=== PATIENT | male | born 1945 ===

== ENCOUNTER 2020-02-20 13:52 | Inpatient (IN) | payer MEDICARE ==
[2020-02-20] MEDS ORDERED: MORPHINE SULFATE 4 MG/ML SYRINGE IVP PRN (18:23)
[2020-02-20] MEDS ORDERED: DIPH,PERTUS(ACELL)TETVAC-LF 0.5 ML VIAL IM ONE (18:23)
[2020-02-20] MEDS ORDERED: hydrALAZINE HCL 20 MG/ML 1 ML VIAL IVP PRN (18:25)
[2020-02-20] MEDS ORDERED: ALPRAZolam 0.25 MG TAB PO PRN (18:27)
[2020-02-20] MEDS: DEXTROSE 5% IN WATER 1,000 ML IV SCH (18:41)
[2020-02-20] MEDS: NEOMYCIN-BACITRACIN-POLY OINT 14 GM TUBE TOPICAL SCH (18:55)
[2020-02-20] MEDS: PRAVASTATIN SODIUM 20 MG TAB PO SCH (20:14)
[2020-02-20] MEDS: PANTOPRAZOLE 40 MG TABLET PO SCH (20:14)
[2020-02-20] MEDS: METOPROLOL SUCCINATE (ER) 25 MG TAB.ER.24H PO SCH (20:14)
[2020-02-20] MEDS: HYDROcodone/APAP 5-325MG 1 EACH TAB PO PRN (20:14)
[2020-02-21] MEDS: HYDROcodone/APAP 5-325MG 1 EACH TAB PO PRN ×2 (02:18→20:05)
[2020-02-21] MEDS: DEXTROSE 5% IN WATER 1,000 ML IV SCH ×2 (02:21→12:37)
[2020-02-21 06:34] LABS: Basophils % (A) 1 %; Eosinophils # (A) 0.1 k/uL (0-0.7); Eosinophils % (A) 2 %; HCT 47.1 % (39.0-53.0); HGB 15.4 gm/dL (13.0-17.5); Lymphocytes # (A) 1.5 k/uL (1.0-4.8); Lymphocytes % (A) 23 %; MCH 33.1 pg (25.0-35.0); MCHC 32.7 g/dL (31.0-37.0); MCV 101.3 fL (80.0-100.0); Monocytes # (A) 0.5 k/uL (0-1.0); Monocytes % (A) 7 %; Neutrophils # (A) 4.3 k/uL (1.3-7.7); Neutrophils % (A) 65 %; Platelet Count 261 k/uL (150-450); RBC 4.65 m/uL (4.30-5.90); RDW 12.7 % (11.5-15.5); WBC 6.6 k/uL (3.8-10.6)
[2020-02-21 06:44] LABS: ALT 104 U/L (4-49); AST 218 U/L (17-59); African American GFR (CKD) >90 (>60 ml/min/1.73 sqM); Albumin 3.6 g/dL (3.5-5.0); Alkaline Phosphatase 65 U/L (38-126); Anion Gap 5 mmol/L; Blood Urea Nitrogen 14 mg/dL (9-20); Calcium 8.7 mg/dL (8.4-10.2); Carbon Dioxide 28 mmol/L (22-30); Chloride 105 mmol/L (98-107); Glucose 111 mg/dL (74-99); Non-African American GFR(CKD) 87 (>60 ml/min/1.73 sqM); Potassium 3.8 mmol/L (3.5-5.1); Sodium 138 mmol/L (137-145); Total Bilirubin 0.8 mg/dL (0.2-1.3); Total Protein 6.4 g/dL (6.3-8.2)
[2020-02-21] MEDS: lisinopriL 20 MG TAB PO SCH (09:19)
[2020-02-21] MEDS: amLODIPine 10 MG TAB PO SCH (09:19)
[2020-02-21] MEDS: ASPIRIN 81 MG PO SCH ×2 (09:19→11:30)
[2020-02-21] MEDS: CHOLECALCIFEROL 1,000 UNIT TAB PO SCH (09:19)
--- NOTE | 2020-02-21 10:08 | P.CNOR ---
<Adia Hernandez - Last Filed: 02/21/20 14:03> History of Present Illness - [facility] Consult date: 02/21/20 Consult reason: joint pain (Right shoulder pain) History of present illness: The patient is a 74-year-old male who presented to the hospital yesterday as a transfer from [place]. He states he fell a week ago Friday in his barn and was unable to get up off the floor for many hours. He states that his right shoulder was very painful after the fall and he was unable to pull himself up. The patient states that he does use a cane at home but was not using it at the time of his fall. He is status post right reverse total shoulder by Dr. Lafleur at least 5 years ago. Overall the shoulder has felt okay until this fall. He denies any pain at this time but states the pain is very severe at night when he is trying to sleep. He also states that his bilateral legs feel weak since this episode. The patient is being treated for rhabdomyolysis and unstable angina. Cardiology has seen the patient and he is already had a stress test. Orthopedics was consulted for further evaluation of his right shoulder pain. Review of Systems Constitutional: Reports malaise, Denies chills, Denies fever Cardiovascular: Denies chest pain, Denies shortness of breath Respiratory: Denies cough Gastrointestinal: Denies abdominal pain, Denies diarrhea, Denies nausea, Denies vomiting Musculoskeletal: right: shoulder pain Past Medical History Past Medical History: GERD/Reflux, Hyperlipidemia, Hypertension, Myocardial Infarction ([place]), Osteoarthritis (OA) Last Myocardial Infarction Date:: unk History of Any Multi-Drug Resistant Organisms: None Reported Past Surgical History: Orthopedic Surgery Additional Past Surgical History / Comment(s): back surgery x 8, left shoulder total, right shoulder reverse replacement, hernia surgery x2 Past Anesthesia/Blood Transfusion Reactions: No Reported Reaction Past Psychological History: Anxiety Smoking Status: Never smoker Past Alcohol Use History: Daily Additional Past Alcohol Use History / Comment(s): drinks 3 beers daily after 5pm - Past Family History Mother Family Medical History: Cancer Additional Family Medical History / Comment(s): breast Father Family Medical History: CVA/TIA Additional Family Medical History / Comment(s): stroke 80 Sister(s) Family Medical History: Cancer Additional Family Medical History / Comment(s): breast Daughter(s) Family Medical History: Cancer Additional Family Medical History / Comment(s): ovarian Medications and Allergies Home Medications Medication Instructions Recorded Confirmed Type ALPRAZolam [Xanax] 0.25 mg PO HS PRN 02/20/20 02/20/20 History Acetaminophen Tab [Tylenol] 650 mg PO Q2H PRN 02/20/20 02/20/20 History Aspirin EC [Ecotrin Low Dose] 81 mg PO DAILY 02/20/20 02/20/20 History Benazepril [Lotensin] 20 mg PO DAILY 02/20/20 02/20/20 History Calcium Carbonate [Calcium] 600 mg PO BID 02/20/20 02/20/20 History Cholecalciferol [Vitamin D3 (25 2,000 unit PO DAILY 02/20/20 02/20/20 History Mcg = 1000 Iu)] Ibuprofen [Advil] 200 mg PO Q6H PRN 02/20/20 02/20/20 History Metoprolol Succinate (ER) [Toprol 25 mg PO HS 02/20/20 02/20/20 History XL] Multivit-Min/FA/Lycopen/Lutein 1 tab PO DAILY 02/20/20 02/20/20 History [Centrum Silver Tablet] Omeprazole 20 mg PO HS 02/20/20 02/20/20 History Pravastatin Sodium [Pravachol] 20 mg PO HS 02/20/20 02/20/20 History Triple Elba(860mg Elba-3/552mg 1 cap PO HS 02/20/20 02/20/20 History Elba-6/340mg Elba-9) Urinozinc Prostate 1 tab PO BID 02/20/20 02/20/20 History amLODIPine [Norvasc] 10 mg PO DAILY 02/20/20 02/20/20 History Cephalexin [Keflex] 500 mg PO TID 7 Days #21 cap 02/23/20 Rx Wpgmeyfk-Vpejrdxxue-Tqnx Oint 1 applic TOPICAL DAILY applic 02/23/20 Rx [Triple Antibiotic Ointment] Allergies Allergy/AdvReac Type Severity Reaction Status Date / Time Iodinated Contrast Media AdvReac Nausea & Verified 02/20/20 17:04 Vomiting shellfish derived [Shellfish] AdvReac Vomiting Verified 02/20/20 17:04 Physical Examination The patient is a 74 y/o male who is no acute distress. He is alert and oriented x3. Exam of the right shoulder reveals a well healed incision the anterior aspect of the shoulder. No is no pain over the subacromial region to palpation. Range of motion reveals abduction is to 90. Extension is 10. Flexion is to 85. There is no pain on active or passive ROM of the shoulder. There is no anterior instability of the shoulder. Negative shoulder apprehension. Full, painless range of motion of the elbow, forearm, wrist and hand. Circulatory status is intact. Neurovascular status is intact. Neurosensory is intact. Results - Labs Labs: Abnormal Lab Results - Last 24 Hours (Table) 02/21/20 02/21/20 Range/Units 05:47 05:47 MCV 101.3 H (80.0-100.0) fL Glucose 111 H (74-99) mg/dL AST 218 H (17-59) U/L ALT 104 H (4-49) U/L H & H 02/21/20 Range/Units 05:47 Hgb 15.4 (13.0-17.5) gm/dL Hct 47.1 (39.0-53.0) % Result Diagrams: 02/21/20 05:47 02/21/20 05:47 - Diagnostic results Shoulder x-ray: image reviewed (X-rays of the right shoulder reveals no evidence of fracture, bone lesions, or deformity. The components are in good position without signs of migration. ) Assessment and Plan (1) Right shoulder pain Current Visit: Yes Status: Acute Code(s): M25.511 - PAIN IN RIGHT SHOULDER SNOMED Code(s): 87069106 (2) S/p reverse total shoulder arthroplasty Current Visit: Yes Status: Acute Code(s): Z96.619 - PRESENCE OF UNSPECIFIED ARTIFICIAL SHOULDER JOINT SNOMED Code(s): 406622760 Plan: The clinical findings were discussed with the patient. The case was discussed at length with Dr. Grossman. X-rays of the right shoulder were negative for periprosthetic fracture or dislocation. The patient states his pain is under c ontrol at this time. He most likely tore part of his rotator cuff that was remaining after the reverse total shoulder. No surgical intervention is planned at this time. The patient will follow up with Dr. Lafleur upon discharge from the hospital for further care for his right shoulder. The patient is orthopedically stable for discharge home when cleared by internal medicine and cardiology. We will sign off at this time. <Wenceslao Grossman - Last Filed: 02/23/20 15:10> Results - Labs Labs: Abnormal Lab Results - Last 24 Hours (Table) 02/23/20 Range/Units 06:10 Chloride 112 H (98-107) mmol/L Glucose 101 H (74-99) mg/dL Creatine Kinase 573 H (55-170) U/L H & H 02/21/20 Range/Units 05:47 Hgb 15.4 (13.0-17.5) gm/dL Hct 47.1 (39.0-53.0) % Result Diagrams: 02/21/20 05:47 02/23/20 06:10 Assessment and Plan Plan: Discussed with TABITHA Hernandez and agree with above. The patient was subsequently seen and examined by me as well. S: He admits to two injuries: The first was when he was trying to forcefully turn the crank on a hitch which required the use of both arms. He felt a sharp pain but the symptoms gradually improved. The second was about a week ago when he fell in the barn. He laid on the ground for some time as he was unable to rise. He states that the pain in the shoulder has improved quite a bit. O: Right shoulder: No ecchymosis. No focal tenderness to palpation. He is able to perform active elevation and abduction and denies pain with these maneuvers. Weakness with resisted internal and external rotation but minimal pain. No pain with passive internal and external rotation. The shoulder articulates smoothly without crepitus or instabilty. Imaging: X-rays of the right shoulder demonstrate a press-fit reverse TSA. Appears well- fixed and in good overall position. No obvious or displaced fractures. There i s subtle linear increased radiodensity across the proximal metadiaphysis which could indicate a nondisplaced healing fracture. There is a subtle vertical lucency on the lateral aspect of the metaphysis, near the neck of the stem, which could represent a nondisplaced acute fracture. A: 1. Right shoulder pain status post fall 2. Status post right reverse total shoulder arthroplasty P: I reviewed the clinical and radiographic findings in detail with the patient. The description of the injuries and his exam are consistent with a contusion/sprain. We discussed the x-ray findings which could indicate subtle ac-implant fractures. Based on his exam, I feel this is less likely. Regardless, I advised against any strenuous or forceful use of the arm/shoulder for the next 2-3 weeks. He may continue using the arm for normal daily activities and I encouraged range of motion to prevent stiffness. I encouraged him to follow-up outpatient with Dr. Lafleur. Questions were invited and answered; the patient expressed understanding and agreement with the outlined plan. Thank you for allowing me to participate in the care of this patient. Wenceslao Grossman D.O. [facility]
--- NOTE | 2020-02-21 11:09 | P.CRDCN ---
History of Present Illness Consult date: 02/21/20 History of present illness: CHIEF COMPLAINT: Chest pain HISTORY OF PRESENT ILLNESS: 74-year-old male with history of coronary artery disease, hypertension, and hyperlipidemia was transferred from [facility] yesterday. Patient reports sustaining a fall a few weeks ago and has been having some pain in his right shoulder. He states he was shaving yesterday and began feeling dizzy and lightheaded. Patient follows with Dr. Mead on an outpatient basis. The patient had a stress test completed in 2019 which revealed evidence of a prior myocardial infarction without ischemia. Most recent echocardiogram completed in 2019 reveals ejection fraction of 45%, mild aortic regurgitation, mild mitral regurgitation, and trace tricuspid regurgitation. Patient examined this morning the bedside. Patient denies having any chest pain or pressure. Denies shortness of breath. DIAGNOSTICS: EKG reveals sinus rhythm with T-wave changes in the anterior leads. No previous EKG in the computer for comparison Laboratory data WBC 6.6. Hemoglobin 15.4. Platelet count 261. Sodium 138. Potassium 3.8. BUN 14. Creatinine 0.81. Troponin 0.020. 0.027. 0.030. Initial CK at [facility] was 5840. Current home cardiac medications include aspirin 81 mg daily, Norvasc 10 mg daily, pravastatin 20 mg daily, metoprolol 25 mg daily, and Lotensin 20 mg daily REVIEW OF SYSTEMS: CONSTITUTIONAL: Denies fever or chills. HEENT: Denies blurred vision, vision changes, or eye pain. Denies hemoptysis CARDIOVASCULAR: Denies chest pain, orthopnea, PND or palpitations. Reports dizziness and lightheadedness yesterday. RESPIRATORY: No shortness of breath. GASTROINTESTINAL: Denies abdominal pain. Denies nausea or vomiting. HEMATOLOGIC: Denies bleeding disorders. GENITOURINARY: Denies any blood in urine. SKIN: Denies pruitis. Denies rash. PHYSICAL EXAM: VITAL SIGNS: Reviewed. GENERAL: Well-developed in no acute distress. HEENT: Head is normocephalic. Pupils are equal, round. Sclerae anicteric. Mucous membranes of the mouth are moist. Neck supple. No JVD or thyromegaly LUNGS: Respirations even and unlabored. Lungs essentially clear to auscultation bilaterally. HEART: Regular rate and rhythm. S1 and S2 heard. Systolic murmur. ABDOMEN: Soft. Nontender. EXTREMITIES: Normal range of motion. No clubbing or cyanosis. Peripheral pulses intact. No lower extremity edema NEUROLOGIC: Awake and alert. Oriented x 3. ASSESSMENT: 1. Dizziness and lightheadedness 2. Recent falls with subsequent right arm pain 3. Elevated CK 4. Hypertension 5. Hyperlipidemia 6. Coronary artery disease, patient with stress test in 2019 revealing evidence of prior myocardial infarction without ischemia PLAN: -2D Echocardiogram ordered to assess cardiac structure and function -Obtain previous 12-lead EKG from sister superior's office to compare -Repeat CK level Nurse practitioner note has been reviewed by physician. Signing provider agrees with the documented findings, assessment, and plan of care. Past Medical History Past Medical History: GERD/Reflux, Hyperlipidemia, Hypertension, Myocardial Infarction ([place]), Osteoarthritis (OA) Last Myocardial Infarction Date:: unk History of Any Multi-Drug Resistant Organisms: None Reported Past Surgical History: Orthopedic Surgery Additional Past Surgical History / Comment(s): back surgery x 8, left shoulder total, right shoulder reverse replacement, hernia surgery x2 Past Anesthesia/Blood Transfusion Reactions: No Reported Reaction Past Psychological History: Anxiety Smoking Status: Never smoker Past Alcohol Use History: Daily Additional Past Alcohol Use History / Comment(s): drinks 3 beers daily after 5pm - Past Family History Mother Family Medical History: Cancer Additional Family Medical History / Comment(s): breast Father Family Medical History: CVA/TIA Additional Family Medical History / Comment(s): stroke 80 Sister(s) Family Medical History: Cancer Additional Family Medical History / Comment(s): breast Daughter(s) Family Medical History: Cancer Additional Family Medical History / Comment(s): ovarian Medications and Allergies Home Medications Medication Instructions Recorded Confirmed Type ALPRAZolam [Xanax] 0.25 mg PO HS PRN 02/20/20 02/20/20 History Acetaminophen Tab [Tylenol] 650 mg PO Q2H PRN 02/20/20 02/20/20 History Aspirin EC [Ecotrin Low Dose] 81 mg PO DAILY 02/20/20 02/20/20 History Benazepril [Lotensin] 20 mg PO DAILY 02/20/20 02/20/20 History Calcium Carbonate [Calcium] 600 mg PO BID 02/20/20 02/20/20 History Cholecalciferol [Vitamin D3 (25 2,000 unit PO DAILY 02/20/20 02/20/20 History Mcg = 1000 Iu)] Ibuprofen [Advil] 200 mg PO Q6H PRN 02/20/20 02/20/20 History Metoprolol Succinate (ER) [Toprol 25 mg PO HS 02/20/20 02/20/20 History XL] Multivit-Min/FA/Lycopen/Lutein 1 tab PO DAILY 02/20/20 02/20/20 History [Centrum Silver Tablet] Omeprazole 20 mg PO HS 02/20/20 02/20/20 History Pravastatin Sodium [Pravachol] 20 mg PO HS 02/20/20 02/20/20 History Triple Ashley(860mg Ashley-3/552mg 1 cap PO HS 02/20/20 02/20/20 History Ashley-6/340mg Ashley-9) Urinozinc Prostate 1 tab PO BID 02/20/20 02/20/20 History amLODIPine [Norvasc] 10 mg PO DAILY 02/20/20 02/20/20 History Allergies Allergy/AdvReac Type Severity Reaction Status Date / Time Iodinated Contrast Media AdvReac Nausea & Verified 02/20/20 17:04 Vomiting shellfish derived [Shellfish] AdvReac Vomiting Verified 02/20/20 17:04 Physical Exam Vitals: Vital Signs Temp Pulse Resp BP BP Pulse Ox 02/21/20 03:30 56 L 18 02/21/20 03:29 98.4 F 56 L 18 121/80 92 L 02/20/20 23:22 60 18 02/20/20 23:17 97.9 F 60 18 132/85 92 L 02/20/20 20:00 98.0 F 60 18 141/94 93 L 02/20/20 19:12 75 18 157/99 95 02/20/20 16:17 97.5 F L 76 18 159/101 94 L 02/20/20 16:15 97.5 F L 76 18 159/101 94 L Intake and Output 02/20/20 02/21/20 02/21/20 22:59 06:59 14:59 Intake Total 1000 Balance 1000 Intake: Intake, IV Titration 1000 Amount Dextrose 5% in Water 1, 1000 000 ml @ 125 mls/hr IV . Q8H [facility] Rx#:[id number] Other: Voiding Method Toilet Toilet # Voids 1 Weight 82.7 kg 83 kg Results 02/21/20 05:47 02/21/20 05:47 Cardiac Enzymes 02/20/20 02/20/20 02/21/20 Range/Units 18:42 22:18 01:07 AST (17-59) U/L CK-MB (CK-2) (0.0-2.4) ng/mL Troponin I 0.020 0.027 0.030 (0.000-0.034) ng/mL 02/21/20 02/21/20 Range/Units 05:47 05:47 AST 218 H (17-59) U/L CK-MB (CK-2) 2.2 (0.0-2.4) ng/mL Troponin I (0.000-0.034) ng/mL CBC 02/21/20 Range/Units 05:47 WBC 6.6 (3.8-10.6) k/uL RBC 4.65 (4.30-5.90) m/uL Hgb 15.4 (13.0-17.5) gm/dL Hct 47.1 (39.0-53.0) % Plt Count 261 (150-450) k/uL Comprehensive Metabolic Panel 02/21/20 Range/Units 05:47 Sodium 138 (137-145) mmol/L Potassium 3.8 (3.5-5.1) mmol/L Chloride 105 (98-107) mmol/L Carbon Dioxide 28 (22-30) mmol/L BUN 14 (9-20) mg/dL Creatinine 0.81 (0.66-1.25) mg/dL Glucose 111 H (74-99) mg/dL Calcium 8.7 (8.4-10.2) mg/dL AST 218 H (17-59) U/L ALT 104 H (4-49) U/L Alkaline Phosphatase 65 (38-126) U/L Total Protein 6.4 (6.3-8.2) g/dL Albumin 3.6 (3.5-5.0) g/dL Current Medications Generic Name Dose Route Start Last Admin Trade Name Freq PRN Reason Stop Dose Admin Hydrocodone Bitart/Acetaminophen 1 each 02/20/20 18:23 02/21/20 02:18 Magness 5-325 PO 1 each Q6HR PRN Administration Pain Alprazolam 0.25 mg 02/20/20 18:27 02/20/20 22:47 Xanax PO 0.25 mg HS PRN Administration Anxiety Amlodipine Besylate 10 mg 02/21/20 09:00 Norvasc PO DAILY [facility] Aspirin 81 mg 02/21/20 09:00 Aspirin PO DAILY [facility] Cholecalciferol 2,000 unit 02/21/20 09:00 Vitamin D3 (25 Mcg = 1000 Iu) PO DAILY [facility] Hydralazine HCl 10 mg 02/20/20 18:25 Apresoline IVP Q4HR PRN Blood Pressure - High Dextrose/Water 1,000 mls @ 125 mls/hr 02/20/20 18:30 02/21/20 02:21 Dextrose 5%-Water Iv Soln IV 125 mls/hr .Q8H AGNES Administration Lisinopril 20 mg 02/21/20 09:00 Zestril PO DAILY [facility] Metoprolol Succinate 25 mg 02/20/20 21:00 02/20/20 20:14 Toprol Xl PO 25 mg HS [facility] Administration Morphine Sulfate 4 mg 02/20/20 18:23 Morphine Sulfate (Inj) IVP Q4HR PRN Pain Neomycin/Polymyxin/Bacitracin 1 applic 02/20/20 18:30 02/20/20 18:55 Triple Antibiotic Ointment TOPICAL 1 applic DAILY [facility] Administration Pantoprazole Sodium 40 mg 02/20/20 21:00 02/20/20 20:14 Protonix PO 40 mg HS [facility] Administration Pravastatin Sodium 20 mg 02/20/20 21:00 02/20/20 20:14 Pravachol PO 20 mg HS [facility] Administration Intake and Output 02/20/20 02/21/20 02/21/20 22:59 06:59 14:59 Intake Total 1000 Balance 1000 Intake: Intake, IV Titration 1000 Amount Dextrose 5% in Water 1, 1000 000 ml @ 125 mls/hr IV . Q8H [facility] Rx#:[id number] Other: Voiding Method Toilet Toilet # Voids 1 Weight 82.7 kg 83 kg 02/21/20 05:47 02/21/20 05:47
[2020-02-21] MEDS ORDERED: SODIUM CHLORIDE 0.9% 1,000 ML in EMPTY BAG 1 BAG IV ONE (11:26)
[2020-02-21] MEDS ORDERED: NITROGLYCERIN SL TABS 0.4 MG TAB SUBLINGUAL PRN (11:26)
[2020-02-21] MEDS ORDERED: ALPRAZolam 0.5 MG TAB PO PRN (11:26)
--- NOTE | 2020-02-21 11:39 | XR ---
EXAMINATION TYPE: XR shoulder complete RT DATE OF EXAM: 02/21/2020 COMPARISON: NONE HISTORY: 74-year-old male right shoulder pain, status post reverse total shoulder arthroplasty TECHNIQUE: 3 views FINDINGS: Reverse right total shoulder arthroplasty is demonstrated. Alignment appears appropriate. Prosthetic components are well seated without periprosthetic fracture. 1.5 cm corticated density below the gleno id probable heterotopic ossification or postsurgical change. IMPRESSION: Uncomplicated appearance to the reverse right total shoulder arthroplasty. A 1.5 cm corti cated density below the joint space is a chronic appearance, either heterotopic ossification or relat ed to the patient's surgery. Correlate with any available outside priors for stability.
--- NOTE | 2020-02-21 11:59 | ECHOF ---
Referral Reason:LV function MEASUREMENTS -------- HEIGHT: 180.3 cm WEIGHT: 82.6 kg BP: 121/80 IVSd: 1.3 cm (0.6 - 1.1) LVIDd: 3.5 cm (3.9 - 5.3) LVPWd: 1.0 cm (0.6 - 1.1) IVSs: 1.3 cm LVIDs: 2.7 cm LVPWs: 1.3 cm LAESV Index (A-L): 38.42 ml/m Ao Diam: 3.4 cm (2.0 - 3.7) AV Cusp: 1.1 cm (1.5 - 2.6) LA Diam: 3.5 cm (2.7 - 3.8) MV EXCURSION: 14.837 mm (> 18.000) MV EF SLOPE: 127 mm/s (70 - 150) EPSS: 2.2 cm MV E Celestino: 0.50 m/s MV DecT: 206 ms MV A Celestino: 0.76 m/s MV E/A Ratio: 0.66 AV maxP.29 mmHg AV meanP.19 mmHg AR PHT: 843 ms RAP: 5.00 mmHg RVSP: 12.60 mmHg FINDINGS -------- Sinus rhythm with extra systolic beats. This was a technically difficult study with suboptimal views. The left ventricular size is normal. There is mild concentric left ventricular hypertrophy. Overa ll left ventricular systolic function is mild-moderately impaired with, an EF between 40 - 45 %. Th e diastolic filling pattern is normal for the age of the patient 10.41. The right ventricle is normal in size. LA is moderately dilated 34-39 ml/m2 The right atrial size is normal. Lumason used There is mild aortic valve sclerosis. There is mild aortic regurgitation. There is mild aortic st enosis present. Peak/mean gradient across the Aortic Valve is 17.29mmHg / 12.19mmHg. The mitral valve is normal. Mild mitral regurgitation is present. The tricuspid valve appears structurally normal. Mild tricuspid regurgitation present. Right vent ricular systolic pressure is normal at < 35 mmHg. There is no pulmonic regurgitation present. The aortic root size is normal. IVC Not well visulized. There is no pericardial effusion. CONCLUSIONS -------- 1. There is mild concentric left ventricular hypertrophy. 2. Overall left ventricular systolic function is mild-moderately impaired with, an EF between 40 - 45 %. 3. The diastolic filling pattern is normal for the age of the patient 10.41 4. LA is moderately dilated 34-39 ml/m2 5. There is mild aortic valve sclerosis. 6. There is mild aortic regurgitation. 7. There is mild aortic stenosis present. 8. Peak/mean gradient across the Aortic Valve is 17.29mmHg / 12.19mmHg. 9. Mild mitral regurgitation is present. 10. Mild tricuspid regurgitation present. ACID TENDER: Marylou Vidales RDCS
[2020-02-21] MEDS: NEOMYCIN-BACITRACIN-POLY OINT 14 GM TUBE TOPICAL SCH ×2 (13:04→18:40)
--- NOTE | 2020-02-21 13:20 | P.HPIM ---
History of Present Illness this is a pleasant 74 years old male with past medical history of hyperlipidemia, hypertension,osteoarthritis, GERD, alcohol abuse. Presents because he was feeling dizzy while his shaven today. He is a patient of Dr. Levi at [facility]. 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 Although he felt dizzy today however he did not pass out and he did not fall. Also patient was complaining of from right shoulder pain for 3 weeks after he gets strenuous exercise working on his planned entry about 3 weeks ago. He denies any trauma or falling at that time and since then he has right shoulder pain radiating to the right upper chest associated with no tenderness but he has numbness in the medial little two fingers on the right side Asst. and about 8 days. Admission his shirt caught to the door and he fell and he has to crawl the cause he has difficulty getting up from the floor, he crawl to the critical top on the has injury with scratch in both knee, there are superficial ulcers were purulent discharge he denies headache or back pain. He denies numbness. No blurred vision or slurred speech. vital signs stable.. Labs show an unremarkable CBC, BMP, liver enzymes slightly elevated to 218 and 104, elevated creatine kinase 2471. Serial troponins are negative 3 with 0.0 to 10.03. in the emergency room TDp vaccine . And started on D5 water at 125 mL/h. Review of Systems CONSTITUTIONAL: No fever, no malaise, no fatigue. HEENT: No recent visual problems or hearing problems. Denied any sore throat. CARDIOVASCULAR: No orthopnea, PND, no palpitations, no syncope. PULMONARY: No shortness of breath, no cough, no hemoptysis. GASTROINTESTINAL: No diarrhea, no nausea, no vomiting, no abdominal pain. Normoactive bowel sounds. NEUROLOGICAL: No headaches, no weakness HEMATOLOGICAL: Denies any bleeding or petechiae. GENITOURINARY: Denies any burning micturition, frequency, or urgency. MUSCULOSKELETAL/RHEUMATOLOGICAL: Denies any joint pain, swelling, or any muscle pain. ENDOCRINE: Denies any polyuria or polydipsia. Past Medical History Past Medical History: GERD/Reflux, Hyperlipidemia, Hypertension, Myocardial Infarction (PA), Osteoarthritis (OA) Last Myocardial Infarction Date:: unk History of Any Multi-Drug Resistant Organisms: None Reported Past Surgical History: Orthopedic Surgery Additional Past Surgical History / Comment(s): back surgery x 8, left shoulder total, right shoulder reverse replacement, hernia surgery x2 Past Anesthesia/Blood Transfusion Reactions: No Reported Reaction Past Psychological History: Anxiety Smoking Status: Never smoker Past Alcohol Use History: Daily Additional Past Alcohol Use History / Comment(s): drinks 3 beers daily after 5pm - Past Family History Mother Family Medical History: Cancer Additional Family Medical History / Comment(s): breast Father Family Medical History: CVA/TIA Additional Family Medical History / Comment(s): stroke 80 Sister(s) Family Medical History: Cancer Additional Family Medical History / Comment(s): breast Daughter(s) Family Medical History: Cancer Additional Family Medical History / Comment(s): ovarian Medications and Allergies Home Medications Medication Instructions Recorded Confirmed Type ALPRAZolam [Xanax] 0.25 mg PO HS PRN 02/20/20 02/20/20 History Acetaminophen Tab [Tylenol] 650 mg PO Q2H PRN 02/20/20 02/20/20 History Aspirin EC [Ecotrin Low Dose] 81 mg PO DAILY 02/20/20 02/20/20 History Benazepril [Lotensin] 20 mg PO DAILY 02/20/20 02/20/20 History Calcium Carbonate [Calcium] 600 mg PO BID 02/20/20 02/20/20 History Cholecalciferol [Vitamin D3 (25 2,000 unit PO DAILY 02/20/20 02/20/20 History Mcg = 1000 Iu)] Ibuprofen [Advil] 200 mg PO Q6H PRN 02/20/20 02/20/20 History Metoprolol Succinate (ER) [Toprol 25 mg PO HS 02/20/20 02/20/20 History XL] Multivit-Min/FA/Lycopen/Lutein 1 tab PO DAILY 02/20/20 02/20/20 History [Centrum Silver Tablet] Omeprazole 20 mg PO HS 02/20/20 02/20/20 History Pravastatin Sodium [Pravachol] 20 mg PO HS 02/20/20 02/20/20 History Triple Gracey(860mg Gracey-3/552mg 1 cap PO HS 02/20/20 02/20/20 History Gracey-6/340mg Gracey-9) Urinozinc Prostate 1 tab PO BID 02/20/20 02/20/20 History amLODIPine [Norvasc] 10 mg PO DAILY 02/20/20 02/20/20 History Allergies Allergy/AdvReac Type Severity Reaction Status Date / Time Iodinated Contrast Media AdvReac Nausea & Verified 02/20/20 17:04 Vomiting shellfish derived [Shellfish] AdvReac Vomiting Verified 02/20/20 17:04 Physical Exam Vitals: Vital Signs Temp Pulse Resp BP BP Pulse Ox 02/21/20 12:00 77 16 130/88 98 02/21/20 08:00 96.7 F L 62 16 169/100 93 L 02/21/20 03:30 56 L 18 02/21/20 03:29 98.4 F 56 L 18 121/80 92 L 02/20/20 23:22 60 18 02/20/20 23:17 97.9 F 60 18 132/85 92 L 02/20/20 20:00 98.0 F 60 18 141/94 93 L 02/20/20 19:12 75 18 157/99 95 02/20/20 16:17 97.5 F L 76 18 159/101 94 L 02/20/20 16:15 97.5 F L 76 18 159/101 94 L Intake and Output 02/20/20 02/21/20 02/21/20 22:59 06:59 14:59 Intake Total 1000 0 Balance 1000 0 Intake: Intake, IV Titration 1000 Amount Dextrose 5% in Water 1, 1000 000 ml @ 125 mls/hr IV . Q8H [facility] Rx#:[id number] Oral 0 Other: Voiding Method Toilet Toilet # Voids 1 1 # Bowel Movements 0 Weight 82.7 kg 83 kg -GENERAL: The patient is alert and oriented x3, not in any acute distress. Well developed, well nourished. generally weak HEENT: Pupils are round and equally reacting to light. EOMI. No scleral icterus. No conjunctival pallor. Normocephalic, atraumatic. No pharyngeal erythema. No thyromegaly. CARDIOVASCULAR: S1 and S2 present. No murmurs, rubs, or gallops. PULMONARY: Chest is clear to auscultation, no wheezing or crackles. ABDOMEN: Soft, nontender, nondistended, normoactive bowel sounds. No palpable organomegaly. -MUSCULOSKELETAL: No joint swelling or deformity. superficial ulcers on both knees with some purulent discharge EXTREMITIES: No cyanosis, clubbing, or pedal edema. NEUROLOGICAL: Gross neurological examination did not reveal any focal deficits. SKIN: No rashes. No petechiae Results CBC & Chem 7: 02/21/20 05:47 02/21/20 05:47 Labs: Abnormal Lab Results - Last 24 Hours (Table) 02/21/20 02/21/20 02/21/20 Range/Units 05:47 05:47 05:47 MCV 101.3 H (80.0-100.0) fL Glucose 111 H (74-99) mg/dL AST 218 H (17-59) U/L ALT 104 H (4-49) U/L Creatine Kinase 2471 H* (55-170) U/L Thrombosis Risk Factor Assmnt - Choose All That Apply Any of the Below Risk Factors Present?: Yes Each Factor Represents 1 point: Obesity (BMI >25) Other Risk Factors: Yes Each Risk Factor Represents 3 Points: Age 75 years or older Thrombosis Risk Factor Assessment Total Risk Factor Score: 4 Thrombosis Risk Factor Assessment Level: Moderate Risk Assessment and Plan Assessment: lightheadedness and dizziness, one day prior to admission fall with injury to both knees, with superficial ulceration and purulent discharge, about one week prior to admission Stress injury to the right shoulder about 3 weeks prior to admission, with numbness in the medial right little 2 fingers acute Rhabdomyolysis alcohol abuse hypertension Hyperlipidemia osteoarthritis GERD Plan: this is a pleasant 74 years old male who presents with fall, dizziness and Rhabdomyolysis, do serial troponin, check echocardiogram. Cardiology consult. cardiology planning for cardiac cath tomorrow. Repeat CPK. Orthopedic team already consulted for right shoulder injury and they going to evaluate the patient. Stop D5 water and change it to normal saline at 75 mL/h. Labs and medication were reviewed.. Continue same treatment. Continue with symptomatic treatment. Resume home medication. Monitor lytes and vitals. DVT and GI prophylaxis. Further recommendations of the clinical course of the patient DVT prophylaxis: Subcutaneous heparin GI Prophylaxis: Pepcid PT/OT: Pending Prognosis is guarded
[2020-02-21] MEDS: SODIUM CHLORIDE 0.9% 1,000 ML IV SCH ×2 (13:30→22:54)
[2020-02-21] MEDS: CEPHALEXIN 500 MG CAP PO SCH ×2 (13:30→20:05)
[2020-02-21] MEDS: FAMOTIDINE 20 MG/2 ML VIAL IV SCH (20:04)
[2020-02-21] MEDS: HEPARIN SODIUM,PORCINE 5,000 UNIT/ML 1 ML VIAL SQ SCH (20:04)
[2020-02-21] MEDS: PANTOPRAZOLE 40 MG TABLET PO SCH (20:05)
[2020-02-21] MEDS: PRAVASTATIN SODIUM 20 MG TAB PO SCH (20:05)
[2020-02-21] MEDS: METOPROLOL SUCCINATE (ER) 25 MG TAB.ER.24H PO SCH (20:05)
[2020-02-21] MEDS: ALPRAZolam 0.25 MG TAB PO PRN (22:48)
[2020-02-22 06:34] LABS: African American GFR (CKD) >90 (>60 ml/min/1.73 sqM); Anion Gap 4 mmol/L; Blood Urea Nitrogen 15 mg/dL (9-20); Calcium 8.8 mg/dL (8.4-10.2); Carbon Dioxide 25 mmol/L (22-30); Chloride 109 mmol/L (98-107); Creatine Kinase 983 U/L (55-170); Glucose 106 mg/dL (74-99); Magnesium 2.1 mg/dL (1.6-2.3); Non-African American GFR(CKD) 85 (>60 ml/min/1.73 sqM); Potassium 3.6 mmol/L (3.5-5.1); Sodium 138 mmol/L (137-145)
[2020-02-22] MEDS ORDERED: ATORVASTATIN 80 MG TAB PO ONE (08:00)
[2020-02-22] MEDS ORDERED: ASPIRIN 325 MG TAB PO ONE (08:00)
[2020-02-22] MEDS: lisinopriL 20 MG TAB PO SCH (08:17)
[2020-02-22] MEDS: CHOLECALCIFEROL 1,000 UNIT TAB PO SCH (08:17)
[2020-02-22] MEDS: amLODIPine 10 MG TAB PO SCH (08:17)
[2020-02-22] MEDS: CEPHALEXIN 500 MG CAP PO SCH ×3 (08:17→20:17)
[2020-02-22] MEDS: HEPARIN SODIUM,PORCINE 5,000 UNIT/ML 1 ML VIAL SQ SCH ×2 (08:18→20:17)
[2020-02-22] MEDS: FAMOTIDINE 20 MG/2 ML VIAL IV SCH (08:18)
[2020-02-22] MEDS ORDERED: SODIUM CHLORIDE 0.9% 1,000 ML in EMPTY BAG 1 BAG IV ONE (09:23)
[2020-02-22] MEDS ORDERED: NITROGLYCERIN SL TABS 0.4 MG TAB SUBLINGUAL PRN (09:23)
[2020-02-22] MEDS ORDERED: ALPRAZolam 0.5 MG TAB PO PRN (09:23)
[2020-02-22] MEDS ORDERED: ALPRAZolam 0.25 MG TAB PO PRN (09:23)
--- NOTE | 2020-02-22 12:27 | P.PN ---
Subjective Progress Note Date: 02/22/20 CHIEF COMPLAINT: Chest pain HISTORY OF PRESENT ILLNESS: Patient examined this morning the bedside. Patient denies shortness of breath or chest pain. Vital signs are stable. echocardiogram completed reveals ejection fraction between 40 and 45%. PHYSICAL EXAM: VITAL SIGNS: Reviewed. GENERAL: Well-developed in no acute distress. HEENT: Head is normocephalic. Pupils are equal, round. Sclerae anicteric. Mucous membranes of the mouth are moist. Neck supple. No JVD or thyromegaly LUNGS: Respirations even and unlabored. Lungs essentially clear to auscultation bilaterally. HEART: Regular rate and rhythm. S1 and S2 heard. Systolic murmur. EXTREMITIES: Normal range of motion. No clubbing or cyanosis. Peripheral pulses intact. No lower extremity edema ASSESSMENT: 1. Dizziness and lightheadedness 2. Recent falls with subsequent right arm pain 3. Elevated CK 4. Hypertension 5. Hyperlipidemia 6. Coronary artery disease, patient with stress test in 2019 revealing evidence of prior myocardial infarction without ischemia PLAN: Patient was originally scheduled for cardiac catheterization today with Dr. Mead. However due to scheduling this will be canceled for today and patient will be rescheduled for cardiac catheterization tomorrow morning. Nurse practitioner note has been reviewed by physician. Signing provider agrees with the documented findings, assessment, and plan of care. Objective - Vital Signs Vital signs: Vital Signs Temp 98.1 F 02/22/20 08:00 Pulse 63 02/22/20 11:32 Resp 16 02/22/20 11:32 BP 147/92 02/22/20 11:32 Pulse Ox 98 02/22/20 11:32 Intake & Output 02/21/20 02/22/20 02/22/20 18:59 06:59 18:59 Intake Total 120 720 0 Balance 120 720 0 Weight 82.6 kg Intake: Intake, IV Titration 600 Amount Sodium Chloride 0.9% 1, 600 000 ml @ 75 mls/hr IV . [id number] [facility] Rx#:[id number] Oral 120 120 0 Other: Voiding Method Toilet # Voids 1 1 # Bowel Movements 0 - Labs CBC & Chem 7: 02/21/20 05:47 02/22/20 05:57 Labs: Abnormal Lab Results - Last 24 Hours (Table) 02/22/20 Range/Units 05:57 Chloride 109 H (98-107) mmol/L Glucose 106 H (74-99) mg/dL Creatine Kinase 983 H (55-170) U/L Microbiology - Last 24 Hours (Table) 02/21/20 18:50 Gram Stain - Preliminary Knee - Left Wound Culture - Preliminary
--- NOTE | 2020-02-22 16:03 | P.PN ---
Subjective Progress Note Date: 02/22/20 Principal diagnosis: this is a pleasant 74 years old male with past medical history of hyperlipidemia, hypertension,osteoarthritis, GERD, alcohol abuse. Presents because he was feeling dizzy while his shaven today. He is a patient of Dr. Levi at [facility]. 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 Although he felt dizzy today however he did not pass out and he did not fall. Also patient was complaining of from right shoulder pain for 3 weeks after he gets strenuous exercise working on his planned entry about 3 weeks ago. He denies any trauma or falling at that time and since then he has right shoulder pain radiating to the right upper chest associated with no tenderness but he has numbness in the medial little two fingers on the right side Asst. and about 8 days. Admission his shirt caught to the door and he fell and he has to crawl the cause he has difficulty getting up from the floor, he crawl to the critical top on the has injury with scratch in both knee, there are superficial ulcers were purulent discharge he denies headache or back pain. He denies numbness. No blurred vision or slurred speech. vital signs stable.. Labs show an unremarkable CBC, BMP, liver enzymes slightly elevated to 218 and 104, elevated creatine kinase 2471. Serial troponins are negative 3 with 0.0 to 10.03. in the emergency room TDp vaccine . And started on D5 water at 125 mL/h. 02/22/2020 Patient is seen and evaluated in follow-up with no acute overnight issues. Patient is being followed by cardiology along with orthopedics. Orbital recommending conservative management of the right shoulder pain and outpatient follow-up. Patient was admitted for weakness along with falls and CK was elevated. CK currently trending down and is 93 today. Will repeat a.m. labs to monitor closely. Cardiology recommending cardiac catheterization and is scheduled to undergo this in the morning. Patient will be nothing by mouth at midnight. Patient was seen and evaluated by physical therapy and patient's plan is to go home with family once stabilized and discharged. Review of systems: Constitutional: No reports of fatigue, fever, or chills Cardiovascular: No reports of chest pain or palpitations Respiratory: No reports of shortness of breath or cough GI: No reports of nausea, vomiting, or diarrhea : No reports of dysuria or retention Neurovascular: No reports of weakness or numbness All medications have been reviewed Objective - Vital Signs Vital signs: Vital Signs Temp 98.1 F 02/22/20 08:00 Pulse 55 L 02/22/20 08:00 Resp 16 02/22/20 08:00 BP 159/88 02/22/20 08:00 Pulse Ox 98 02/22/20 08:00 Intake & Output 02/21/20 02/22/20 02/22/20 18:59 06:59 18:59 Intake Total 120 720 0 Balance 120 720 0 Weight 82.6 kg Intake: Intake, IV Titration 600 Amount Sodium Chloride 0.9% 1, 600 000 ml @ 75 mls/hr IV . [id number] [facility] Rx#:[id number] Oral 120 120 0 Other: Voiding Method Toilet # Voids 1 1 # Bowel Movements 0 - Exam GENERAL: The patient is alert and oriented x3, not in any acute distress. Well developed, well nourished. Hard of hearing HEENT: Pupils are round and equally reacting to light. EOMI. No scleral icterus. No conjunctival pallor. Normocephalic, atraumatic. No pharyngeal erythema. No thyromegaly. CARDIOVASCULAR: S1 and S2 present. No murmurs, rubs, or gallops. PULMONARY: Chest is clear to auscultation, no wheezing or crackles. ABDOMEN: Soft, nontender, nondistended, normoactive bowel sounds. No palpable organomegaly. -MUSCULOSKELETAL: No joint swelling or deformity. superficial ulcers on both knees with some purulent discharge EXTREMITIES: No cyanosis, clubbing, or pedal edema. NEUROLOGICAL: Gross neurological examination did not reveal any focal deficits. SKIN: No rashes. No petechiae - Labs CBC & Chem 7: 02/21/20 05:47 02/22/20 05:57 Labs: Abnormal Lab Results - Last 24 Hours (Table) 02/22/20 Range/Units 05:57 Chloride 109 H (98-107) mmol/L Glucose 106 H (74-99) mg/dL Creatine Kinase 983 H (55-170) U/L Microbiology - Last 24 Hours (Table) 02/21/20 18:50 Gram Stain - Preliminary Knee - Left Wound Culture - Preliminary Assessment and Plan Assessment: lightheadedness and dizziness, one day prior to admission fall with injury to both knees, with superficial ulceration and purulent discharge, about one week prior to admission Stress injury to the right shoulder about 3 weeks prior to admission, with numbness in the medial right little 2 fingers acute Rhabdomyolysis alcohol abuse hypertension Hyperlipidemia osteoarthritis GERD DVT prophylaxis: Subcu heparin GI prophylaxis: Pepcid Plan: Continue current medications, management, and symptomatic treatment. Patient scheduled to undergo cardiac catheterization in the morning. Cardiology following. Will repeat a.m. labs along with creatinine kinase is trending down. Orthopedics evaluated the patient for right shoulder injury although recommending conservative management with outpatient follow-up. Will continue to monitor closely. Further recommendations to follow. Possible discharge in 24-48 hours.
[2020-02-22] MEDS: SODIUM CHLORIDE 0.9% 1,000 ML IV SCH (16:31)
[2020-02-22] MEDS: METOPROLOL SUCCINATE (ER) 25 MG TAB.ER.24H PO SCH (20:17)
[2020-02-22] MEDS: PRAVASTATIN SODIUM 20 MG TAB PO SCH (20:17)
[2020-02-22] MEDS: HYDROcodone/APAP 5-325MG 1 EACH TAB PO PRN (20:17)
[2020-02-22] MEDS: PANTOPRAZOLE 40 MG TABLET PO SCH (20:17)
[2020-02-22] MEDS ORDERED: DOXYCYCLINE 100 MG CAP PO SCH (21:00)
[2020-02-22] MEDS: ALPRAZolam 0.25 MG TAB PO PRN (22:27)
[2020-02-23 04:59] VITALS: TEMP 97.8
[2020-02-23] MEDS: CEPHALEXIN 500 MG CAP PO SCH (05:39)
[2020-02-23] MEDS: ASPIRIN 81 MG PO SCH (05:39)
[2020-02-23] MEDS: HEPARIN SODIUM,PORCINE 5,000 UNIT/ML 1 ML VIAL SQ SCH (05:39)
[2020-02-23] MEDS: CHOLECALCIFEROL 1,000 UNIT TAB PO SCH (05:39)
[2020-02-23] MEDS: amLODIPine 10 MG TAB PO SCH (05:39)
[2020-02-23] MEDS: lisinopriL 20 MG TAB PO SCH (05:40)
[2020-02-23] MEDS: NEOMYCIN-BACITRACIN-POLY OINT 14 GM TUBE TOPICAL SCH (05:40)
[2020-02-23] MEDS: SODIUM CHLORIDE 0.9% 1,000 ML IV SCH (05:50)
[2020-02-23] MEDS ORDERED: ASPIRIN 325 MG TAB PO ONE (06:00)
[2020-02-23] MEDS ORDERED: ATORVASTATIN 80 MG TAB PO ONE (06:00)
[2020-02-23 06:48] LABS: African American GFR (CKD) >90 (>60 ml/min/1.73 sqM); Anion Gap 4 mmol/L; Blood Urea Nitrogen 16 mg/dL (9-20); Calcium 8.7 mg/dL (8.4-10.2); Carbon Dioxide 25 mmol/L (22-30); Chloride 112 mmol/L (98-107); Creatine Kinase 573 U/L (55-170); Glucose 101 mg/dL (74-99); Magnesium 2.1 mg/dL (1.6-2.3); Non-African American GFR(CKD) 89 (>60 ml/min/1.73 sqM); Potassium 4.3 mmol/L (3.5-5.1); Sodium 141 mmol/L (137-145)
[2020-02-23] MEDS ORDERED: LIDOCAINE 1% INJ 10MG/ML (20 ML MDV) ONE (07:19)
[2020-02-23] MEDS ORDERED: fentaNYL (PF) 50 MCG/ML 2 ML AMP ONE (07:20)
[2020-02-23] MEDS ORDERED: diphenhydrAMINE 50 MG/ML 1 ML VIAL ONE (07:21)
[2020-02-23] MEDS ORDERED: methylPREDNISolone SOD SUCCI 125 MG/2 ML VIAL ONE (07:21)
[2020-02-23] MEDS ORDERED: methylPREDNISolone SOD SUCCI 125 MG/2 ML VIAL IV ONE (07:32)
[2020-02-23] MEDS ORDERED: diphenhydrAMINE 50 MG/ML 1 ML VIAL IVP ONE ×3 (07:32)
[2020-02-23] MEDS ORDERED: IV FLUID CONTINUATION 800 ML IV ONE (07:32)
[2020-02-23] MEDS ORDERED: MIDAZOLAM 2 MG/2 ML VIAL IVP ONE (07:35)
[2020-02-23] MEDS ORDERED: LIDOCAINE 1% INJ 10MG/ML (20 ML MDV) SQ ONE (07:37)
[2020-02-23] MEDS ORDERED: IOPAMIDOL-370 125ML BTL INJ ONE (08:12)
[2020-02-23] MEDS ORDERED: RX INFO: IV CONTRAST WAS GIVEN 1 EACH MISC MISCELLANE PRN (08:20)
[2020-02-23] MEDS ORDERED: SODIUM CHLORIDE 0.9% 1,000 ML IV SCH (08:30)
--- NOTE | 2020-02-23 10:23 | CC ---
CARDIAC CATHETERIZATION REPORT CHIEF INDICATION: Unstable angina. PROCEDURE NOTE: After obtaining informed consent, left heart catheterization and coronary angiogram were performed via the right femoral artery using standard Jonelle catheters. Patient tolerated the procedure well without any obvious immediate complications. A femoral angiogram was performed and Angio-Seal was deployed for hemostasis. FINDINGS: 1. HEMODYNAMICS: Central aortic pressure is 130/70 mm. 2. LEFT VENTRICULOGRAM: Left ventriculogram is not performed. 3. ANGIOGRAPHIC DATA: LEFT MAIN CORONARY ARTERY: Left main coronary artery is a large vessel and is free of stenosis. Divides into left anterior descending, ramus intermedius and circumflex coronary artery. LEFT ANTERIOR DESCENDING CORONARY ARTERY: LAD shows a proximal area of stenosis that has a borderline lesion around 40%-50% stenosis. The diagonal branches and rest of the LAD are free of significant disease. Ramus intermedius and circumflex coronary artery are free of significant disease. 1. RIGHT CORONARY ARTERY: Right coronary artery is a large dominant vessel and is free of significant stenosis. CONCLUSION: Borderline lesion within the left anterior descending coronary artery. PLAN: The angiographic data was reviewed by Dr. Moore, the on-call ordering box operator and we decided that the patient is better off with optimal medical therapy. If necessary, I will perform a stress test on him and if he has ischemia in LAD distribution, we will bring him back. MMODL / IJN: [id number] /
[2020-02-23 13:49] VITALS: BP 131/79
[2020-02-23 13:54] VITALS: PULSE 65; RESP 18
--- NOTE | 2020-02-23 14:04 | P.DS ---
Providers Date of admission: 02/20/20 15:50 Expected date of discharge: 02/23/20 Attending physician: Edmundo David MD Consults: 02/20/20 18:13 Consult Physician Routine Consulting Provider: Mj Luo Consult Reason/Comments: [place] Do you want consulting provider notified?: Yes, Notify in am 02/20/20 18:26 Consult Physician Routine Consulting Provider: Susan Cleveland Consult Reason/Comments: Right shoulder pain/injury Do you want consulting provider notified?: Yes, Notify in am Primary care physician: Stated None Hospital Course: Final diagnosis lightheadedness and dizziness, one day prior to admission fall with injury to both knees, with superficial ulceration and purulent discharge, about one week prior to admission Stress injury to the right shoulder about 3 weeks prior to admission, with numbness in the medial right little 2 fingers acute Rhabdomyolysis alcohol abuse hypertension Hyperlipidemia osteoarthritis GERD DVT prophylaxis GI prophylaxis Discharge disposition Patient is being discharged in a stable condition with guarded prognosis to home. Patient will follow-up with primary care provider in the outpatient setting upon discharge. Patient also instructed to follow-up with cardiology Dr. Mead in the outpatient setting. Total time taken is greater than 35 minutes. History of present illness This is a 74-year-old male who was recently admitted with dizziness and had a recent fall and was being closely monitored. Cardiology evaluated the patient recommending cardiac catheterization. Patient also continued to have right shoulder discomfort and was evaluated by orthopedic surgery recommending conservative management with outpatient follow-up. Patient was also found to have elevated CK levels which have been trending down. Patient instructed and encouraged to continue drinking fluids. Patient also instructed to follow-up with primary care provider for repeat labs to monitor CK levels along with cardiology in the outpatient setting. Cardiac cath showed left anterior descending coronary artery showed a proximal area of stenosis that has a borderline lesion around 40-50% stenosis and the rest of the LAD are free of si gnificant disease along with the ramus intermedius and circumflex coronary artery are free of significant disease and will continue with maximizing medical management and will follow-up in the outpatient setting. Currently no reports of chest pain, shortness of breath, or palpitations. Patient is afebrile. No reports of nausea or vomiting and patient is tolerating diet. Patient will be discharged home today. On exam vital signs are stable. Temp is 97.8F, pulse is 65, respirations are 16, blood pressure is 131/79, oxygen saturation is 90-92% on room air. Cardio S1, S2 are muffled. Respiratory system shows diminished breath sounds at the bases with no wheezing or rhonchi noted. Abdomen is soft and nontender. Nervous system shows no focal deficit. Please refer to medication reconciliation sheet for a list of medications. Patient Condition at Discharge: Fair Plan - Discharge Summary Discharge Rx Participant: No New Discharge Prescriptions: New Cephalexin [Keflex] 500 mg PO TID 7 Days #21 cap Hcnipmsi-Cqlgxbihuq-Vaqw Oint [Triple Antibiotic Ointment] 1 applic TOPICAL DAILY applic Continue Metoprolol Succinate (ER) [Toprol XL] 25 mg PO HS ALPRAZolam [Xanax] 0.25 mg PO HS PRN PRN Reason: Anxiety Pravastatin Sodium [Pravachol] 20 mg PO HS Omeprazole 20 mg PO HS Benazepril [Lotensin] 20 mg PO DAILY amLODIPine [Norvasc] 10 mg PO DAILY Ibuprofen [Advil] 200 mg PO Q6H PRN PRN Reason: Pain Acetaminophen Tab [Tylenol] 650 mg PO Q2H PRN PRN Reason: Pain Urinozinc Prostate 1 tab PO BID Triple Lyndon(860mg Lyndon-3/552mg Lyndon-6/340mg Lyndon-9) 1 cap PO HS Cholecalciferol [Vitamin D3 (25 Mcg = 1000 Iu)] 2,000 unit PO DAILY Multivit-Min/FA/Lycopen/Lutein [Centrum Silver Tablet] 1 tab PO DAILY Calcium Carbonate [Calcium] 600 mg PO BID Aspirin EC [Ecotrin Low Dose] 81 mg PO DAILY Discharge Medication List ALPRAZolam [Xanax] 0.25 mg PO HS PRN 02/20/20 [History] Acetaminophen Tab [Tylenol] 650 mg PO Q2H PRN 02/20/20 [History] Aspirin EC [Ecotrin Low Dose] 81 mg PO DAILY 02/20/20 [History] Benazepril [Lotensin] 20 mg PO DAILY 02/20/20 [History] Calcium Carbonate [Calcium] 600 mg PO BID 02/20/20 [History] Cholecalciferol [Vitamin D3 (25 Mcg = 1000 Iu)] 2,000 unit PO DAILY 02/20/20 [History] Ibuprofen [Advil] 200 mg PO Q6H PRN 02/20/20 [History] Metoprolol Succinate (ER) [Toprol XL] 25 mg PO HS 02/20/20 [History] Multivit-Min/FA/Lycopen/Lutein [Centrum Silver Tablet] 1 tab PO DAILY 02/20/20 [History] Omeprazole 20 mg PO HS 02/20/20 [History] Pravastatin Sodium [Pravachol] 20 mg PO HS 02/20/20 [History] Triple Lyndon(860mg Lyndon-3/552mg Lyndon-6/340mg Lyndon-9) 1 cap PO HS 02/20/20 [History] Urinozinc Prostate 1 tab PO BID 02/20/20 [History] amLODIPine [Norvasc] 10 mg PO DAILY 02/20/20 [History] Cephalexin [Keflex] 500 mg PO TID 7 Days #21 cap 02/23/20 [Rx] Qtgskvuy-Nhynphxcar-Rpxx Oint [Triple Antibiotic Ointment] 1 applic TOPICAL DAILY applic 02/23/20 [Rx] Follow up Appointment(s)/Referral(s): Zachery Mead MD [STAFF PHYSICIAN] - 1 Week Activity/Diet/Wound Care/Special Instructions: Activity Limited until follow-up Encouraged fluids Follow-up with primary care provider upon discharge Follow-up with cardiology in the outpatient setting Continue with antibiotics for 1 week Discharge Disposition: HOME SELF-CARE
== END 2020-02-23 16:36 | disposition home or self-care (01) | DRG 287 ==
LOC: 3SCARD 15:50
PROVIDERS: ADMIT Internal Medicine; ATTEND Internal Medicine
DX: I25.110 Atherosclerotic heart disease of native coronary artery with unstable angina pectoris (principal); M62.82 Rhabdomyolysis; I10 Essential (primary) hypertension; E78.5 Hyperlipidemia, unspecified; F10.10 Alcohol abuse, uncomplicated; K21.9 Gastro-esophageal reflux disease without esophagitis; M19.90 Unspecified osteoarthritis, unspecified site; F41.9 Anxiety disorder, unspecified; Z96.612 Presence of left artificial shoulder joint; Z98.890 Other specified postprocedural states; Z96.611 Presence of right artificial shoulder joint; R74.8 Abnormal levels of other serum enzymes; R29.6 Repeated falls; M79.601 Pain in right arm; I08.3 Combined rheumatic disorders of mitral, aortic and tricuspid valves; I25.2 Old myocardial infarction; Z80.3 Family history of malignant neoplasm of breast; Z82.3 Family history of stroke; Z80.41 Family history of malignant neoplasm of ovary; Z79.82 Long term (current) use of aspirin; Z79.899 Other long term (current) drug therapy; Z91.81 History of falling; Z91.041 Radiographic dye allergy status; Z91.013 Allergy to seafood
CPT/HCPCS: 80048; 80053; 82550; 82553; 83735; 84484; 85025; 87070; 87205; 90715; 93306; 93454

== ENCOUNTER 2020-05-13 21:59 | Observation (INO) | payer MEDICARE, OTHER ==
[2020-05-13 22:40] LABS: Basophils % (A) 1 %; Eosinophils # (A) 0.1 k/uL (0-0.7); Eosinophils % (A) 2 %; HCT 48.4 % (39.0-53.0); HGB 16.3 gm/dL (13.0-17.5); Lymphocytes # (A) 1.2 k/uL (1.0-4.8); Lymphocytes % (A) 27 %; MCH 33.6 pg (25.0-35.0); MCHC 33.7 g/dL (31.0-37.0); MCV 99.7 fL (80.0-100.0); Mean Platelet Volume 6.5; Monocytes # (A) 0.3 k/uL (0-1.0); Monocytes % (A) 7 %; Neutrophils # (A) 2.7 k/uL (1.3-7.7); Neutrophils % (A) 61 %; Platelet Count 189 k/uL (150-450); RBC 4.86 m/uL (4.30-5.90); RDW 12.3 % (11.5-15.5); WBC 4.5 k/uL (3.8-10.6)
[2020-05-13 22:54] LABS: ALT 38 U/L (4-49); AST 55 U/L (17-59); African American GFR (CKD) >90 (>60 ml/min/1.73 sqM); Albumin 4.2 g/dL (3.5-5.0); Alkaline Phosphatase 77 U/L (38-126); Anion Gap 10 mmol/L; Blood Urea Nitrogen 10 mg/dL (9-20); Calcium 9.4 mg/dL (8.4-10.2); Carbon Dioxide 20 mmol/L (22-30); Chloride 113 mmol/L (98-107); Glucose 98 mg/dL (74-99); Non-African American GFR(CKD) >90 (>60 ml/min/1.73 sqM); Potassium 3.6 mmol/L (3.5-5.1); Sodium 143 mmol/L (137-145); Total Bilirubin 0.6 mg/dL (0.2-1.3); Total Protein 7.1 g/dL (6.3-8.2)
[2020-05-13] MEDS ORDERED: NALOXONE 0.4 MG/ML 1 ML VIAL IV PRN (23:22)
--- NOTE | 2020-05-13 23:22 | ED ---
Overdose HPI - General Chief Complaint: Overdose Stated Complaint: Overdose Time Seen by Provider: 05/13/20 22:15 Source: EMS Mode of arrival: EMS Limitations: no limitations - History of Present Illness Initial Comments: Kavon is a 74 yo male who presents to the ER today via EMS he transfer from [facility]. Patient presented to the hospital after an intentional overdose of 20 pills of PENELOPE inhibitor. Patient was approximately 2 hours since ingestion and was given charcoal. Please a trial recommended observation and evaluation by psychiatry. Patient has remained awake alert and oriented throughout his hospitalization and transfer. 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 He states that there is some strength in his family over a will. He states that he has no history of depression or anxiety. No history of suicide attempt. - Related Data Home Medications Medication Instructions Recorded Confirmed ALPRAZolam [Xanax] 0.25 mg PO HS PRN 02/20/20 02/20/20 Acetaminophen Tab [Tylenol] 650 mg PO Q2H PRN 02/20/20 02/20/20 Aspirin EC [Ecotrin Low Dose] 81 mg PO DAILY 02/20/20 02/20/20 Benazepril [Lotensin] 20 mg PO DAILY 02/20/20 02/20/20 Calcium Carbonate [Calcium] 600 mg PO BID 02/20/20 02/20/20 Cholecalciferol [Vitamin D3 (25 2,000 unit PO DAILY 02/20/20 02/20/20 Mcg = 1000 Iu)] Ibuprofen [Advil] 200 mg PO Q6H PRN 02/20/20 02/20/20 Metoprolol Succinate (ER) [Toprol 25 mg PO HS 02/20/20 02/20/20 XL] Multivit-Min/FA/Lycopen/Lutein 1 tab PO DAILY 02/20/20 02/20/20 [Centrum Silver Tablet] Omeprazole 20 mg PO HS 02/20/20 02/20/20 Pravastatin Sodium [Pravachol] 20 mg PO HS 02/20/20 02/20/20 Triple Hamburg(860mg Hamburg-3/552mg 1 cap PO HS 02/20/20 02/20/20 Hamburg-6/340mg Hamburg-9) Urinozinc Prostate 1 tab PO BID 02/20/20 02/20/20 amLODIPine [Norvasc] 10 mg PO DAILY 02/20/20 02/20/20 Previous Rx's Medication Instructions Recorded Cephalexin [Keflex] 500 mg PO TID 7 Days #21 cap 02/23/20 Ppeyiwkw-Pahtiwwaeg-Rzaw Oint 1 applic TOPICAL DAILY applic 02/23/20 [Triple Antibiotic Ointment] Allergies Allergy/AdvReac Type Severity Reaction Status Date / Time Iodinated Contrast Media AdvReac Nausea & Verified 05/13/20 22:11 Vomiting shellfish derived [Shellfish] AdvReac Vomiting Verified 05/13/20 22:11 Review of Systems ROS Statement: Those systems with pertinent positive or pertinent negative responses have been documented in the HPI. ROS Other: All systems not noted in ROS Statement are negative. Past Medical History Past Medical History: GERD/Reflux, Hyperlipidemia, Hypertension, Myocardial Infarction ([place]), Osteoarthritis (OA) Last Myocardial Infarction Date:: unk History of Any Multi-Drug Resistant Organisms: None Reported Past Surgical History: Orthopedic Surgery Additional Past Surgical History / Comment(s): back surgery x 8, left shoulder total, right shoulder reverse replacement, hernia surgery x2 Past Anesthesia/Blood Transfusion Reactions: No Reported Reaction Past Psychological History: Anxiety Smoking Status: Never smoker Past Alcohol Use History: Daily Past Drug Use History: None Reported - Past Family History Mother Family Medical History: Cancer Additional Family Medical History / Comment(s): breast Father Family Medical History: CVA/TIA Additional Family Medical History / Comment(s): stroke 80 Sister(s) Family Medical History: Cancer Additional Family Medical History / Comment(s): breast Daughter(s) Family Medical History: Cancer Additional Family Medical History / Comment(s): ovarian General Exam - General Exam Comments Initial Comments: Physical Exam GENERAL: Patient is well-developed and well-nourished. Patient is nontoxic and well-hydrated and is in no distress. HENT: Normocephalic, Atraumatic. black discoloration of the lips consistent with having drink charcoal EYES: PERRL, EOMI PULMONARY: Unlabored respirations. CARDIOVASCULAR: RRR Warm and well perfused extremities ABDOMEN: Non-distended SKIN: No rashes or bruising : Deferred NEUROLOGIC: Alert and oriented Normal speech Normal gait MUSCULOSKELETAL: Moving all extremities with no apparent injury PSYCHIATRIC: No SI/HI Limitations: no limitations Course Vital Signs 11/14/20 22:09 Temperature 98 F Pulse Rate 74 Respiratory 17 Rate Blood Pressure 136/97 O2 Sat by Pulse 92 L Oximetry Medical Decision Making - Medical Decision Making Patient was seen and evaluated History was obtained from patient and transferring physician Repeat labs obtained, no LEELA Patient care discussed with Dr Betancur of [facility] who accepts admission - Lab Data Result diagrams: 05/13/20 22:31 05/13/20 22:31 Lab Results 05/13/20 05/13/20 Range/Units 22:31 22:31 WBC 4.5 (3.8-10.6) k/uL RBC 4.86 (4.30-5.90) m/uL Hgb 16.3 (13.0-17.5) gm/dL Hct 48.4 (39.0-53.0) % MCV 99.7 (80.0-100.0) fL MCH 33.6 (25.0-35.0) pg MCHC 33.7 (31.0-37.0) g/dL RDW 12.3 (11.5-15.5) % Plt Count 189 (150-450) k/uL MPV 6.5 Neutrophils % 61 % Lymphocytes % 27 % Monocytes % 7 % Eosinophils % 2 % Basophils % 1 % Neutrophils # 2.7 (1.3-7.7) k/uL Lymphocytes # 1.2 (1.0-4.8) k/uL Monocytes # 0.3 (0-1.0) k/uL Eosinophils # 0.1 (0-0.7) k/uL Basophils # 0.0 (0-0.2) k/uL Sodium 143 (137-145) mmol/L Potassium 3.6 (3.5-5.1) mmol/L Chloride 113 H (98-107) mmol/L Carbon Dioxide 20 L (22-30) mmol/L Anion Gap 10 mmol/L BUN 10 (9-20) mg/dL Creatinine 0.59 L (0.66-1.25) mg/dL Est GFR (CKD-EPI)AfAm >90 (>60 ml/min/1.73 sqM) Est GFR (CKD-EPI)NonAf >90 (>60 ml/min/1.73 sqM) Glucose 98 (74-99) mg/dL Calcium 9.4 (8.4-10.2) mg/dL Total Bilirubin 0.6 (0.2-1.3) mg/dL AST 55 (17-59) U/L ALT 38 (4-49) U/L Alkaline Phosphatase 77 (38-126) U/L Total Protein 7.1 (6.3-8.2) g/dL Albumin 4.2 (3.5-5.0) g/dL Disposition Clinical Impression: Intentional drug overdose Disposition: [facility] Condition: Serious Is patient prescribed a controlled substance at d/c from ED?: No Referrals: Magdi Jacobs MD [Primary Care Provider] - 1-2 days
--- NOTE | 2020-05-14 02:20 | P.HPIM ---
History of Present Illness H&P Date: 05/13/20 Chief Complaint: suicide with OD 74 year old male with hypertension , and heart disease patient was transferred to our facility from [facility]. he presented there within 2 hours of suicidal OD. he claims that he has no mental health illness or history of depression or suicidal ideation , however he is going through some life stressors made him feel helpless , and he overdosed on his blood pressure meds benazepril and took 20 tabs. but immediately after he reg retted his behavior and called 911 seeking help. he received activated charcoal . and transferred to our hospital . he currently denies any dizziness, SOB, chest pain , nausea or vomiting, lightheadedness. patient reports that he is in good health otherwise, and had recently had left heart cath and was told everything is ok poison control recommended monitoring the patient for 24 hours. blood work and electrolytes unremarkable , vital sings stable Review of Systems Pertinent positives as noted in HPI. All other systems were reviewed and are negative Past Medical History Past Medical History: GERD/Reflux, Hyperlipidemia, Hypertension, Myocardial Infarction ([place]), Osteoarthritis (OA) Last Myocardial Infarction Date:: unk History of Any Multi-Drug Resistant Organisms: None Reported Past Surgical History: Orthopedic Surgery Additional Past Surgical History / Comment(s): back surgery x 8, left shoulder total, right shoulder reverse replacement, hernia surgery x2 Past Anesthesia/Blood Transfusion Reactions: No Reported Reaction Past Psychological History: Anxiety Smoking Status: Never smoker Past Alcohol Use History: Daily Past Drug Use History: None Reported - Past Family History Mother Family Medical History: Cancer Additional Family Medical History / Comment(s): breast Father Family Medical History: CVA/TIA Additional Family Medical History / Comment(s): stroke 80 Sister(s) Family Medical History: Cancer Additional Family Medical History / Comment(s): breast Daughter(s) Family Medical History: Cancer Additional Family Medical History / Comment(s): ovarian Medications and Allergies Home Medications Medication Instructions Recorded Confirmed Type ALPRAZolam [Xanax] 0.25 mg PO HS PRN 02/20/20 02/20/20 History Acetaminophen Tab [Tylenol] 650 mg PO Q2H PRN 02/20/20 02/20/20 History Aspirin EC [Ecotrin Low Dose] 81 mg PO DAILY 02/20/20 02/20/20 History Benazepril [Lotensin] 20 mg PO DAILY 02/20/20 02/20/20 History Calcium Carbonate [Calcium] 600 mg PO BID 02/20/20 02/20/20 History Cholecalciferol [Vitamin D3 (25 2,000 unit PO DAILY 02/20/20 02/20/20 History Mcg = 1000 Iu)] Ibuprofen [Advil] 200 mg PO Q6H PRN 02/20/20 02/20/20 History Metoprolol Succinate (ER) [Toprol 25 mg PO HS 02/20/20 02/20/20 History XL] Multivit-Min/FA/Lycopen/Lutein 1 tab PO DAILY 02/20/20 02/20/20 History [Centrum Silver Tablet] Omeprazole 20 mg PO HS 02/20/20 02/20/20 History Pravastatin Sodium [Pravachol] 20 mg PO HS 02/20/20 02/20/20 History Triple Dexter(860mg Dexter-3/552mg 1 cap PO HS 02/20/20 02/20/20 History Dexter-6/340mg Dexter-9) Urinozinc Prostate 1 tab PO BID 02/20/20 02/20/20 History amLODIPine [Norvasc] 10 mg PO DAILY 02/20/20 02/20/20 History Cephalexin [Keflex] 500 mg PO TID 7 Days #21 cap 02/23/20 Rx Ikfzadgp-Kirkgnwtdh-Iytu Oint 1 applic TOPICAL DAILY applic 02/23/20 Rx [Triple Antibiotic Ointment] Allergies Allergy/AdvReac Type Severity Reaction Status Date / Time Iodinated Contrast Media AdvReac Nausea & Verified 05/13/20 22:11 Vomiting shellfish derived [Shellfish] AdvReac Vomiting Verified 05/13/20 22:11 Physical Exam Vitals: Vital Signs Temp Pulse Resp BP Pulse Ox 05/13/20 22:09 98 F 74 17 136/97 92 L Intake and Output 05/13/20 05/13/20 05/14/20 14:59 22:59 06:59 Other: Weight 79.379 kg Constitutional: No acute distress, conversant, pleasant Eyes: Anicteric sclerae, moist conjunctiva, Pupils equal round reactive to light ENMT: NC/AT Oropharynx clear, no erythema, no exudates Neck: Supple, FROM, no masses, or JVD No carotid bruits No thyromegaly Lungs: Clear to auscultation Clear to percussion Normal respiratory effort, no accessory muscle use Cardiovascular: Heart regular in rate and rhythm, No murmurs, gallops, or rubs No peripheral edema Abdominal: Soft Nontender, no guarding, rebound or rigidity Abdomen moving with respiration Normoactive bowel sounds No hepatomegaly, No splenomegaly No palpable mass No abdominal wall hernia noted Skin: Normal temperature, tone, texture, turgor No induration No subcutaneous nodules No rash, lesions No ulcers Extremities: No digital cyanosis No clubbing Pedal pulses intact and symmetrical Radial pulses intact and symmetrical No calf tenderness Psychiatric: Alert and oriented to person, place and time Appropriate affect fair judgement Neuro Muscles Strength 5/5 in all 4 extremities Sensation to light touch grossly present throughout Cranial nerves II-XII grossly intact No focal sensory deficits Lymphatics: no palpable cervical or supraclavicular , or inguinal lymph nodes Results CBC & Chem 7: 05/13/20 22:31 05/13/20 22:31 Labs: Abnormal Lab Results - Last 24 Hours (Table) 05/13/20 Range/Units 22:31 Chloride 113 H (98-107) mmol/L Carbon Dioxide 20 L (22-30) mmol/L Creatinine 0.59 L (0.66-1.25) mg/dL Assessment and Plan Assessment: Drug overdose and suicidal attempt Depressed mood Suicide precautions Psych evaluation Status post activated charcoal Monitor vital signs and cardiac monitoring Hypertension Resume home meds Hold Benazepril CODE STATUS: Full code DVT prophylaxis: Mechanical Discussed with: Patient, ER Anticipated length of stay less than [address]: Pending psych eval A total of 65 minutes was spent on the care of this complex patient more than 50% of the time was spent in counseling and care coordination.
[2020-05-14] MEDS: SODIUM CHLORIDE 0.9% 1,000 ML IV SCH ×2 (03:25→22:48)
[2020-05-14] MEDS: ASPIRIN 81 MG PO SCH (09:36)
[2020-05-14] MEDS: amLODIPine 10 MG TAB PO SCH (09:36)
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
--- NOTE | 2020-05-14 17:10 | P.PN ---
Subjective Progress Note Date: 05/14/20 (delayed charting seen at 0900) Principal diagnosis: depression Patient is a 74-year-old male with hypertension, dyslipidemia, GERD, and prior myocardial infarction who initially was at [facility] after a suicide attempt with taking too many of his Benzapril. They subsequently transferred him here for further monitoring. He received activated charcoal. On arrival h ere his vital signs were within normal limits. Laboratory analysis was unremarkable. Poison control contacted who recommended monitoring him for 24 hours for side effects such as hypotension. Psychiatry was consulted. They recommended outpatient follow-up. Patient is anxious to go home however I have told him we will need to monitor him for the 24-hour frederic that he can go home first thing in the morning. Patient seen and examined at bedside. He denies any chest pain, shortness of breath, nausea, vomiting, or diarrhea. He is still feeling depressed but realizes that his suicide attempt was a mistake and that he has many things to live for area he really wants to be discharged home. He states that he has a good support family including his daughter and current . I explained to him that he will need to be monitored for 24 hours for signs of hypotension and renal failure. General: Nontoxic, no distress, appears at stated age Derm: warm, dry Head: atraumatic, normocephalic, symmetric Eyes: EOMI, no lid lag, anicteric sclera Mouth: no lip lesion, mucous membranes dry Cardiovascular: S1S2 reg, no murmur, positive posterior tibial pulse bilateral, Lungs: CTA bilateral, no rhonchi, no rales , no accessory muscle use Abdominal: soft, nontender to palpation, no guarding, no appreciable organomegaly Ext: no gross muscle atrophy, no edema, no contractures Neuro: CN II-XI grossly intact, no focal neuro deficits Psych: Alert, oriented, appropriate affect Suicide attempt with PENELOPE inhibitor drug overdose -Hold PENELOPE inhibitor -IV fluids -Repeat basic metabolic profile in a.m. -Hold Advil in light of PENELOPE inhibitor overdose Hypertension -Continue with Norvasc and Toprol -Follow blood pressures Dyslipidemia -Statin Coronary artery disease -Aspirin, statin DVT prophylaxis: SCDs Discussed with: patient, nursing, EPS nurse. Anticipated discharge: in AM Anticipated discharge place: home A total of 35 minutes was spent on the care of this complex patient more than 50% of the time was spent in counseling and care coordination. Objective - Vital Signs Vital signs: Vital Signs Temp 98.0 F 05/14/20 13:47 Pulse 85 05/14/20 13:47 Resp 18 05/14/20 13:47 BP 120/85 05/14/20 13:47 Pulse Ox 97 05/14/20 13:47 Intake & Output 05/13/20 05/14/20 05/14/20 18:59 06:59 18:59 Weight 79.379 kg - Labs CBC & Chem 7: 05/13/20 22:31 05/13/20 22:31 Labs: Abnormal Lab Results - Last 24 Hours (Table) 05/13/20 Range/Units 22:31 Chloride 113 H (98-107) mmol/L Carbon Dioxide 20 L (22-30) mmol/L Creatinine 0.59 L (0.66-1.25) mg/dL
[2020-05-14] MEDS ORDERED: PANTOPRAZOLE 40 MG TABLET PO SCH (21:00)
[2020-05-14] MEDS ORDERED: PRAVASTATIN SODIUM 20 MG TAB PO SCH (21:00)
[2020-05-14] MEDS ORDERED: METOPROLOL SUCCINATE (ER) 25 MG TAB.ER.24H PO SCH (21:00)
[2020-05-15] MEDS: SODIUM CHLORIDE 0.9% 1,000 ML IV SCH (05:01)
[2020-05-15 06:56] LABS: African American GFR (CKD) >90 (>60 ml/min/1.73 sqM); Anion Gap 3 mmol/L; Blood Urea Nitrogen 13 mg/dL (9-20); Calcium 8.8 mg/dL (8.4-10.2); Carbon Dioxide 25 mmol/L (22-30); Chloride 114 mmol/L (98-107); Glucose 111 mg/dL (74-99); Non-African American GFR(CKD) >90 (>60 ml/min/1.73 sqM); Potassium 3.6 mmol/L (3.5-5.1); Sodium 142 mmol/L (137-145)
[2020-05-15 07:32] LABS: Glucose,Whole Blood 103 mg/dL (75-99)
[2020-05-15 07:56] VITALS: BP 157/83; PULSE 55; RESP 16; TEMP 98.1
[2020-05-15] MEDS: ASPIRIN 81 MG PO SCH (08:37)
[2020-05-15] MEDS: amLODIPine 10 MG TAB PO SCH (08:37)
--- NOTE | 2020-05-15 14:56 | P.DS ---
Providers Date of admission: 05/13/20 23:22 Expected date of discharge: 05/15/20 Attending physician: Gabe Betancur MD Consults: 05/13/20 23:24 Consult Physician Routine Consulting Provider: Rodger Monteiro Consult Reason/Comments: overdose, suicide attempt Do you want consulting provider notified?: Yes, Notify in am Primary care physician: Magdi Reynaldo [facility] Hospital Course: Patient is a 74-year-old male with hypertension, dyslipidemia, GERD, and coronary artery disease who initially was at [facility] after a suicide attempt with taking too many of his Benzapril. They subsequently transferred him to [facility] for further monitoring. He received activated charcoal. On arrival here his vital signs were within normal limits. Laboratory analysis was unremarkable. Poison control was contacted who recommended monitoring him for 24 hours for side effects such as hypotension. Psychiatry was consulted. They recommended outpatient follow-up. The patient was seen and examined at the bedside on the day of discharge. He noted that him trying to overdose was a mistake and that he had simply become overwhelmed due to the fear of losing his loved ones. The case has previously discussed with the patient's who had reported that she will monitor all of his medication intake and will keep them under lock and fregoso. On the day of discharge, the pa tiecherrie denied active complaints. He denied chest pain, shortness of breath, fever, chills, nausea, vomiting, or abdominal pain. The patient notes that his daughter lives close by and that he will be staying with his and will keep a close eye on him. Physical Examination General: Non-toxic, in no acute distress, appears stated age, normal weight HEENT: NC/AT, anicteric sclerae, moist conjunctiva, no lid-lag, PERRLA Cardiovascular: S1/S2 wnl, no murmurs, rubs, or gallops Lungs: Clear to auscultation, normal respiratory effort, no accessory muscle use Abdominal: Soft, non-tender, non-distended, no guarding, rebound, or rigidity Skin: Warm, dry Extremities: No edema or contractures Psychiatric: Alert and oriented to person, place and time, appropriate affect Neuro: CN II-XII grossly intact, Strength 5/5 in all 4 extremities, Speech intact, Sensation to light touch grossly intact throughout Discharge diagnosis: Suicide attempt with PENELOPE inhibitor drug overdose; hypertension; hyperlipidemia; coronary artery disease; GERD A total of 40 minutes of time were spent preparing this complex discharge summary. Patient Condition at Discharge: Fair Plan - Discharge Summary Discharge Rx Participant: No New Discharge Prescriptions: Continue Metoprolol Succinate (ER) [Toprol XL] 25 mg PO HS ALPRAZolam [Xanax] 0.25 mg PO HS PRN PRN Reason: Anxiety Pravastatin Sodium [Pravachol] 20 mg PO HS Omeprazole 20 mg PO HS amLODIPine [Norvasc] 10 mg PO DAILY Ibuprofen [Advil] 200 mg PO Q6H PRN PRN Reason: Pain Acetaminophen Tab [Tylenol] 650 mg PO Q4H PRN PRN Reason: Pain Urinozinc Prostate 1 tab PO BID Triple [place](860mg [place]-3/552mg [place]-6/340mg [place]-9) 1 cap PO HS Cholecalciferol [Vitamin D3 (25 Mcg = 1000 Iu)] 2,000 unit PO DAILY Multivit-Min/FA/Lycopen/Lutein [Centrum Silver Tablet] 1 tab PO DAILY Calcium Carbonate [Calcium] 600 mg PO BID Aspirin EC [Ecotrin Low Dose] 81 mg PO DAILY Benazepril HCl 20 mg PO DAILY Discharge Medication List ALPRAZolam [Xanax] 0.25 mg PO HS PRN 02/20/20 [History] Acetaminophen Tab [Tylenol] 650 mg PO Q4H PRN 02/20/20 [History] Aspirin EC [Ecotrin Low Dose] 81 mg PO DAILY 02/20/20 [History] Calcium Carbonate [Calcium] 600 mg PO BID 02/20/20 [History] Cholecalciferol [Vitamin D3 (25 Mcg = 1000 Iu)] 2,000 unit PO DAILY 02/20/20 [History] Ibuprofen [Advil] 200 mg PO Q6H PRN 02/20/20 [History] Metoprolol Succinate (ER) [Toprol XL] 25 mg PO HS 02/20/20 [History] Multivit-Min/FA/Lycopen/Lutein [Centrum Silver Tablet] 1 tab PO DAILY 02/20/20 [History] Omeprazole 20 mg PO HS 02/20/20 [History] Pravastatin Sodium [Pravachol] 20 mg PO HS 02/20/20 [History] Triple [place](860mg [place]-3/552mg [place]-6/340mg [place]-9) 1 cap PO HS 02/20/20 [History] Urinozinc Prostate 1 tab PO BID 02/20/20 [History] amLODIPine [Norvasc] 10 mg PO DAILY 02/20/20 [History] Benazepril HCl 20 mg PO DAILY 05/14/20 [History] Follow up Appointment(s)/Referral(s): Magdi Jacobs MD [Primary Care Provider] - 05/18/20 8:00 am Carlos Diaz DO [REFERRING] - 1-2 Days (Patient denies need to follow up with psychiatrist. Will follow up with PCP. ) Patient Instructions/Handouts: Rhabdomyolysis (DC), Depression (DC), Help Prevent Suicide (DC), Suicide Prevention (DC) Discharge Disposition: HOME SELF-CARE
== END 2020-05-15 11:50 | disposition home or self-care (01) ==
LOC: EC 21:59 → 6NMEDSUR 23:22 → 4SSUR 05-14 17:55
PROVIDERS: ADMIT Internal Medicine; ATTEND Internal Medicine
DX: T46.5X2A Poisoning by other antihypertensive drugs, intentional self-harm, initial encounter (principal); F32.9 Major depressive disorder, single episode, unspecified; I10 Essential (primary) hypertension; E78.5 Hyperlipidemia, unspecified; K21.9 Gastro-esophageal reflux disease without esophagitis; I25.10 Atherosclerotic heart disease of native coronary artery without angina pectoris; F41.9 Anxiety disorder, unspecified; I25.2 Old myocardial infarction; M19.90 Unspecified osteoarthritis, unspecified site; Z91.041 Radiographic dye allergy status; Z91.013 Allergy to seafood; Z79.82 Long term (current) use of aspirin; Z79.899 Other long term (current) drug therapy; Z79.1 Long term (current) use of non-steroidal anti-inflammatories (NSAID); Z63.8 Other specified problems related to primary support group; Z82.3 Family history of stroke; Z80.3 Family history of malignant neoplasm of breast; Z80.41 Family history of malignant neoplasm of ovary
CPT/HCPCS: 82075; 99285; 36415; 80053; 80048; 85025; G0378 ×3

== ENCOUNTER 2024-09-09 07:16 | Day surgery (SDC) | payer MEDICARE, OTHER ==
[~2024-09-09 07:16] MED LIST: ALPRAZolam 0.25 MG TAB PO PRN; ALPRAZolam 0.5 MG TAB PO PRN; NITROGLYCERIN SL TABS 0.4 MG TAB SUBLINGUAL PRN
[2024-09-09] MEDS: ASPIRIN 325 MG TAB PO ONE (07:53)
[2024-09-09] MEDS: SODIUM CHLORIDE 0.9% 1,000 ML in EMPTY BAG 1 BAG IV SCH ×2 (07:53→11:26)
[2024-09-09] MEDS: IV FLUID CONTINUATION 1,000 ML IV ONE (07:54)
[2024-09-09] MEDS: ASPIRIN 81 MG PO STA (08:04)
[2024-09-09] MEDS: HEPARIN SODIUM,PORCINE 10,000 UNIT in SODIUM CHLORIDE 0.9% 1,000 ML IRRIGATION PRN (09:01)
[2024-09-09] MEDS: HEPARIN SODIUM,PORCINE (1 ML) 2,500 UNIT in SODIUM CHLORIDE 0.9% 250 ML IRRIGATION PRN (09:01)
[2024-09-09] MEDS: MIDAZOLAM 2 MG/2 ML VIAL IVP ONE (09:07)
[2024-09-09] MEDS: fentaNYL (PF) 50 MCG/ML 2 ML AMP IVP ONE (09:07)
[2024-09-09] MEDS: LIDOCAINE 1% INJ 10MG/ML (20 ML MDV) SQ ONE (09:09)
[2024-09-09] MEDS: VERAPAMIL SYRINGE (5 MG/10 ML) INTRAARTER ONE (09:15)
[2024-09-09] MEDS: HEPARIN SODIUM 1,000 UN/ML (10ML VL) IVP ONE ×2 (09:19→09:44)
[2024-09-09] MEDS: CLOPIDOGREL 75 MG TAB PO ONE (09:47)
[2024-09-09] MEDS: IOPAMIDOL-250 100ML BTL INTRAARTER ONE (09:49)
--- NOTE | 2024-09-09 10:08 | CC ---
CARDIAC CATHETERIZATION REPORT INDICATIONS: New onset congestive heart failure with ischemic cardiomyopathy and worsening LV function. PROCEDURE NOTE: After obtaining informed consent, left heart catheterization and coronary angiogram are performed via the right radial artery using standard Jonelle catheters. The patient tolerated the procedure well without any obvious immediate complications. The patient received moderate conscious sedation. Total sedation time was 23 minutes. Right radial artery access was obtained using modified Seldinger technique, 6-Korean sheath was placed. Catheters and wires were floated into the ascending aorta under fluoroscopic guidance. The patient received verapamil and heparin per protocol. FINDINGS: 1. Hemodynamics: a. Left-ventricular aortic pressure is 120/80 mm. b.Left ventriculogram: Left ventriculogram is not performed. 2. Angiographic data: a.Right coronary artery: Right coronary artery is a large dominant vessel, that is free of significant stenosis. He was previously stented in the mid RCA, the stent appears patent. b.Left main coronary artery is a normal-sized vessel and it is free of stenosis. It divides into left anterior descending coronary artery, ramus intermedius, and circumflex coronary artery. c.Circumflex coronary artery and its branches are free of significant stenosis. Ramus intermedius shows a tight 90% stenosis proximally that involves the left main. LAD shows a focal 80% stenosis. It gives off a large caliber diagonal branch that had severe stenosis involving the ostial portion. CONCLUSIONS: Three-vessel coronary artery disease as described above with patent stent within the right coronary artery and severe stenosis involving the LAD and severe stenosis involving ramus intermedius. PLAN: Angiographic data was reviewed by Dr. Moore, the on-call clinical case manager, who will perform angioplasty with stent placement of the LAD. Ramus intermedius is very close in the left main; hence, we will treat it medically. MMODL / IJN: [id number] /
[2024-09-09] MEDS: IOPAMIDOL-370 100ML BTL INJ ONE ×2 (10:17→10:22)
[2024-09-09] MEDS ORDERED: ATROPINE SULFATE 0.1 MG/ML 10ML SYRINGE IV PRN (10:32)
[2024-09-09] MEDS ORDERED: NITROGLYCERIN SL TABS 0.4 MG TAB SUBLINGUAL PRN (10:32)
[2024-09-09] MEDS ORDERED: RX INFO: IV CONTRAST WAS GIVEN 1 EACH MISC MISCELLANE PRN (10:32)
[2024-09-09] MEDS ORDERED: MAG HYDROX/AL HYDROX/SIMETH 30 ML CUP PO PRN (10:32)
[2024-09-09] MEDS ORDERED: CYCLOBENZAPRINE 5 MG TAB PO PRN (10:34)
--- NOTE | 2024-09-09 10:39 | P.CARDCATH ---
Date of Procedure: 09/09/24 Description of Procedure: PERCUTANEOUS TRANSLUMINAL CORONARY ANGIOPLASTY CLINICAL INFORMATION: The patient is a 78-year-old male with known history of CAD status post stenting, permanent atrial fibrillation who had recent progression of dyspnea on exertion and evidence of cardiomyopathy with an abnormal MPI. He underwent cardiac catheterization by Dr. Mead and was found to have significant obstructive disease involving the LAD. Recommendations were made regarding angioplasty and stenting. The procedure as well as the risks and the complications were discussed with the patient who was in full understanding and agreement. PROCEDURE: A 6 [place] EBU 3.75 guiding catheter was introduced into the system. After cannulating the left main, a 0.014 BMW J-wire was advanced across the lesion and positioned distally. Following that a 2.5 x 12 mm NC trek balloon was advanced and inflated at 10 atmosphere. After removing the balloon a [employer] eye IVUS catheter was introduced and revealed moderately calcified lesion with a distal lumen measuring 4.3 to 4.5 mm and proximally 4.5 to 5 mm in diameter. Following that a 4.0 x 28 mm Xience delfin point stent stent was deployed. It was dilated at 16 vijaya. Repeat IVUS imaging was performed and showed mild under deployment of the stent proximally. A 4.5 x 12 mm NC trek balloon was advanced and 2 inflations at 10 vijaya were done. After removing the balloon a 4.5 x 12 mm Xience delfin point stent was deployed proximally at 14 vijaya and with the same balloon and inflation in the overlap segment was done. After the last inflation, after appropriate wait, the balloon and the guidewire were withdrawn back into the guiding catheter. Images were obtained and repeated. Those images reveal stable successful stenting. At that point, the guiding catheter, the balloon, and guidewire were removed. The sheath was removed. Hemostasis was obtained with TR band. There were no immediate complications. The patient was returned to the room in stable condition. Of note, the patient received additional 3000 units units of heparin as well as Plavix. His ACT was followed. There was no immediate complications. He had chest discomfort and EKG changes that resolved at the end of the procedure. RESULTS: Successful stenting of the proximal calcified LAD with reduction of stenosis from 80% to less than 5% with IVUS imaging and JAYCE-3 flow. RECOMMENDATIONS: The patient will continue on aspirin and clopidogrel, the aspirin will be stopped in 1 week and he will continue on clopidogrel and Eliquis in addition to aggressive coronary risks modification, attempting to maintain LDL below 70 mg/dL the findings and recommendations were discussed with the patient and the family, they are in full understanding and agreement. Duration of sedation: 47 minutes
[2024-09-09 12:02] LABS: Glucose,Whole Blood 149 mg/dL (70-110)
[2024-09-09] MEDS: PANTOPRAZOLE 40 MG TABLET PO SCH (20:57)
[2024-09-09] MEDS: PREGABALIN 100 MG CAP PO SCH (20:57)
[2024-09-09] MEDS: lisinopriL 20 MG TAB PO SCH (20:57)
[2024-09-09] MEDS: METOPROLOL SUCCINATE (ER) 25 MG TAB.ER.24H PO SCH (20:57)
[2024-09-09] MEDS: ZOLPIDEM 5 MG TAB PO PRN (20:57)
[2024-09-10 04:08] LABS: African American GFR (CKD) >90 (>60 ml/min/1.73 sqM); Anion Gap 6 mmol/L; Blood Urea Nitrogen 8 mg/dL (9-20); Calcium 8.8 mg/dL (8.4-10.2); Carbon Dioxide 28 mmol/L (22-30); Chloride 103 mmol/L (98-107); Glucose 99 mg/dL (74-99); Non-African American GFR(CKD) >90 (>60 ml/min/1.73 sqM); Potassium 3.4 mmol/L (3.5-5.1); Sodium 137 mmol/L (137-145)
[2024-09-10 07:40] VITALS: BP 149/86; PULSE 77; RESP 19; TEMP 97.8
[2024-09-10] MEDS: CLOPIDOGREL 75 MG TAB PO SCH (07:46)
[2024-09-10] MEDS: ASPIRIN 81 MG PO SCH (07:46)
[2024-09-10] MEDS: ATORVASTATIN 40 MG TAB PO SCH (07:47)
[2024-09-10] MEDS: APIXABAN 5 MG TAB PO SCH (07:47)
--- NOTE | 2024-09-10 11:33 | P.DS ---
Providers Expected date of discharge: 09/10/24 Attending physician: Zachery Mead Consults: 09/09/24 10:32 Consult Physician Routine Consulting Provider: [facility] Consult Reason/Comments: Post Interventional patient Do you want consulting provider notified?: Already Contacted Primary care physician: Gt Meredith DO Hospital Course: This is a 78-year-old male brought into the hospital for cardiac catheterization performed by Dr. Quiroga due to new onset of heart failure with ischemic cardiomyopathy and worsening LV function. Cardiac catheterization revealed three-vessel coronary artery disease with stent within the right coronary artery and severe stenosis involving the LAD and severe stenosis involving the ramus intermedius. Patient subsequently underwent PTCA with Dr. Moore with stenting of the proximal calcified LAD. Plan is for patient to continue aspirin, Plavix as well as Eliquis. At 1 week, patient will stop aspirin. Physical examination: Gen: This is [ ] VS: reviewed HEENT: Head is atraumatic, normocephalic. Pupils equal, round. Sclerae is anicteric. NECK: Supple. No JVD. LUNGS: Clear to auscultation. No wheezes or rhonchi. No intercostal retractions. HEART: Regular rate and rhythm. No murmur. ABDOMEN: Soft No tenderness. EXTREMITIES: No pedal edema. No calf tenderness. NEUROLOGICAL: Patient is awake, alert and oriented x3. Assessment: CAD status post PTCA Nurse practitioner note has been reviewed, I agree with documented findings and plan of care. Patient was seen and examined. Plan - Discharge Summary Discharge Rx Participant: No New Discharge Prescriptions: New Aspirin 81 mg PO DAILY tab Potassium Chloride ER [K-Dur 20] 20 meq PO DAILY #90 tab Clopidogrel [Plavix] 75 mg PO DAILY #90 tab Continue Metoprolol Succinate (ER) [Toprol XL] 25 mg PO HS Pravastatin Sodium [Pravachol] 80 mg PO HS Omeprazole 20 mg PO HS amLODIPine [Norvasc] 10 mg PO DAILY Acetaminophen Tab [Tylenol] 650 mg PO Q4H PRN PRN Reason: Pain Multivit-Min/FA/Lycopen/Lutein [Centrum Silver Tablet] 1 tab PO DAILY Benazepril HCl 40 mg PO HS DULoxetine HCL [Cymbalta] 30 mg PO DAILY Pregabalin [Lyrica] 100 mg PO BID Furosemide [Lasix] 40 mg PO DAILY Cyclobenzaprine HCl 5 mg PO TID PRN PRN Reason: Pain Apixaban [Eliquis] 5 mg PO BID Discharge Medication List Acetaminophen Tab [Tylenol] 650 mg PO Q4H PRN 02/20/20 [History] Metoprolol Succinate (ER) [Toprol XL] 25 mg PO HS 02/20/20 [History] Multivit-Min/FA/Lycopen/Lutein [Centrum Silver Tablet] 1 tab PO DAILY 02/20/20 [History] Omeprazole 20 mg PO HS 02/20/20 [History] Pravastatin Sodium [Pravachol] 80 mg PO HS 02/20/20 [History] amLODIPine [Norvasc] 10 mg PO DAILY 02/20/20 [History] Benazepril HCl 40 mg PO HS 05/14/20 [History] Apixaban [Eliquis] 5 mg PO BID 09/07/24 [History] Cyclobenzaprine HCl 5 mg PO TID PRN 09/07/24 [History] DULoxetine HCL [Cymbalta] 30 mg PO DAILY 09/07/24 [History] Pregabalin [Lyrica] 100 mg PO BID 09/07/24 [History] Furosemide [Lasix] 40 mg PO DAILY 09/09/24 [History] Aspirin 81 mg PO DAILY tab 09/10/24 [Rx] Clopidogrel [Plavix] 75 mg PO DAILY #90 tab 09/10/24 [Rx] Potassium Chloride ER [K-Dur 20] 20 meq PO DAILY #90 tab 09/10/24 [Rx] Follow up Appointment(s)/Referral(s): Zachery Mead MD [STAFF PHYSICIAN] - 09/27/24 2:35 pm (PATIENT HAS AN APPOINTMENT SCHEDULED FOR August IN [place] WITH DR. MEAD. ) Patient Instructions/Handouts: *Surgery [facility] - After Heart Catheterization - Environmental Planning Engineer Instructions, Moderate Sedation (DC), After Radial Heart Catheterization (GEN) Activity/Diet/Wound Care/Special Instructions: NO DRIVING FOR THREE DAYS. OK TO SHOWER TOMORROW (REMOVE DRESSING FIRST). NO BATHS, TUBS, SWIMMING, SOAKING IN STANDING WATER LIKE DOING DISHES FOR FIVE DAYS TO HELP PREVENT INFECTION. AVOID PUSHING PULLING LIFTING MORE THAN 5 LBS FOR FIVE DAYS TO AVOID RISK OF BLEEDING. SIGNS OF INFECTION IE: FEVER, RASH, UNUSUAL DRAINAGE CONTACT DR TO BE EVALUATED OR GO TO ER. IF PUNCTURE BLEEDS, APPLY FIRM PRESSURE AND GO TO ER. CALL [address] S[address]F. Discharge Disposition: HOME SELF-CARE
[2024-09-10] MEDS: POTASSIUM CHLORIDE ER 20 MEQ TAB.ER PO STA (11:45)
[2024-09-10 13:17] VITALS: BMI 32.6
== END 2024-09-10 13:57 | disposition home or self-care (01) ==
LOC: CATHCVL 07:16 → 6NMEDSUR 10:20 → CATHCVL 09-10 13:57
PROVIDERS: ATTEND Internal Medicine Cardiovascular Disease
DX: I25.10 Atherosclerotic heart disease of native coronary artery without angina pectoris (principal); I25.84 Coronary atherosclerosis due to calcified coronary lesion; I25.2 Old myocardial infarction; Z95.5 Presence of coronary angioplasty implant and graft; I48.21 Permanent atrial fibrillation; I11.0 Hypertensive heart disease with heart failure; I50.9 Heart failure, unspecified; I25.5 Ischemic cardiomyopathy; E78.2 Mixed hyperlipidemia; Z79.01 Long term (current) use of anticoagulants; Z79.899 Other long term (current) drug therapy
CPT/HCPCS: 92978; 93458; 80048; C9600; C1769 ×3; C1887; C1894; C1753; C1874 ×2; C1725 ×2; J2250; J1644 ×3; J2003; J3010; Q9966; Q9967